=== PATIENT | female | born 1960 | race Caucasian/White ===

== ENCOUNTER 2021-08-28 11:07 | Inpatient (IN) ==
--- NOTE | 2021-08-28 11:55 | Emergency Department Note ---
Impression & Plan Acute exacerbation of chronic obstructive pulmonary disease, Hypoxia, Pneumonia ED Provider Note NAME: DAISY ABEL AGE: 61 SEX: F : 1960 ARRIVES VIA: Walk-In INFORMANT: Patient, ED PROVIDER(S): Pedro Luis Edmondson DO CHIEF COMPLAINT: SOB HPI: The patient is a 61-year-old female who presented to the emergency department for an evaluation shortness of breath. The patient had a vacation recently but she did not do any traveling. She states after that vacation she started noticing difficulty breathing and cough. Her symptoms have slowly been worsening especially over the last few days. She went to her family doctor jeremie lee to be seen and was sent to the emergency department immediately because her pulse ox was 82%. She arrived via private vehicle. She does not normally wear oxygen. She was placed on supplemental oxygen with significant improvement of her symptoms. She denies having any fever. She is had no hemoptysis but she does note a productive cough. She denies having any lower extremity swelling. She states the coughing does worsen when she lies down at night. She does not have a history of COPD diagnosed but she does use tobacco products. The patient did a home COVID test which was negative. ROS: See above HPI for pertinent positives & negatives. A total of 10 systems reviewed and were otherwise negative. PAST MEDICAL HISTORY: See Below PAST SURGICAL HISTORY: See Below FAMILY HISTORY: See Below SOCIAL HISTORY: See Below HOME MEDICATIONS: See Below ALLERGIES: See Below VITALS: See Below PHYSICAL EXAMINATION: GENERAL: Patient is awake alert in no acute distress patient is resting comfortably and showing no signs of anxiety EYES: The conjunctivae are clear. The pupils are round and reactive. EARS, NOSE, MOUTH AND THROAT: The nose is without any evidence of any deformity. Mucous membranes are moist. Tongue is midline. NECK: The neck is nontender and supple. RESPIRATORY: Diminished breath sounds are noted at the right base. There is scattered wheezes and rhonchi noted throughout especially upper lung cummings. There was mild conversational dyspnea. CARDIOVASCULAR: Regular rate and rhythm noted there no murmurs rubs or gallops normal S1 normal S2. GASTROINTESTINAL: The abdomen is soft. Abdomen is nontender MUSCULOSKELETAL/EXTREMITIES: There is no evidence of gross deformity full range of motion is noted in the hips and shoulders. SKIN: There is no obvious evidence of any rash. There are no petechiae, pallor or cyanosis noted. NEUROLOGIC: Patient is awake alert and oriented x3 MEDICAL DECISION MAKING: The patient is a 61-year-old female who presented to the emergency department for shortness of breath. The patient was found to have hypoxia when she follow- up with her family doctor today for these problems. The patient was sent to the emergency department for further evaluation. The patient was found to have abnormal lung sounds. Chest x-ray was felt to be consistent with an infiltrate however it was read as no definite infiltrate so CT of the chest was obtained due to the degree of hypoxia. The patient was treated with bronchodilator therapy. She was also treated with IV fluids and IV antibiotics. She was also given IV steroids. She was reevaluated multiple times. She still had significant oxygen requirement. For this reason I discussed her case with the on-call [facility]. They have agreed to evaluate the patient in the emergency department for further management and disposition. Triage Nursing notes reviewed. Prior medical records reviewed Vital Signs: reviewed and remarkable for elevated blood pressure and hypoxia. Differential diagnosis: Reactive airway disease, pneumonia, pneumothorax, COPD, CHF, infections, cardiac ischemia, pulmonary embolism, musculoskeletal, gastrointestinal, as well as other pathologies. ER treatment provided: See below Diagnostics interpreted by me: ECG: G was obtained in the emergency department. My interpretation is sinus rhythm at 82 bpm. There were no PVCs noted. Nonspecific lateral ST depressions and T wave abnormalities were noted. This was compared to a tracing from November 13, 1998. On the earlier tracing the patient does appear to have a shortened CT interval without delta wave that could be consistent with WPW. This does not appear to be present on today's tracing. Cardiac Monitoring: An order was placed for continuous cardiac monitoring. The monitor shows a rate of 91 bpm with sinus rhythm. Laboratory studies: As stated above and show below. Imaging studies: See below Consultation(s): I discussed this case with Cecelia Das who is on-call for the [facility]. Past Med/Surg History Medical History Depression GERD (gastroesophageal reflux disease) Hypertension Seasonal allergies Tobacco use WPW (Nfwqw-Uwbkgypzf-Efjsi syndrome) Surgical History H/O: hysterectomy History of hip replacement History of shoulder surgery Family History Father Diabetes Mother Diabetes Social History Smoking Status: Current every day smoker Do You Dip or Chew Tobacco: No; Hx Alcohol Use: Yes Alcohol type: beer Alcohol Intake Frequency: 2-3 x/Week Hx Substance Use: No Preferred Language: Guamanian Shearer Helper Required: No Beliefs That Will Affect Care: None Current Living Situation: Family Feels Safe at Home: Yes Safety Concerns: Feels Safe At This Time Allergies Allergies Allergy/AdvReac Type Severity Reaction Status Date / Time bee venom protein (honey bee) Allergy Severe Anaphylaxis Unverified 08/28/21 14:30 Home Meds Home Medications Medication Instructions Recorded Confirmed Bifidobacterium infantis 4 mg 4 mg PO QAM 08/28/21 08/28/21 capsule (Align) azelastine 205.5 mcg (0.15 %) 1 spray INTRANASAL BID 08/28/21 08/28/21 nasal spray citalopram 20 mg tablet 20 mg PO 08/28/21 08/28/21 epinephrine 0.3 mg/0.3 mL 0.3 mg IM UD PRN 08/28/21 08/28/21 injection, auto-injector famotidine 20 mg tablet (Pepcid AC) 20 mg PO 08/28/21 08/28/21 fexofenadine 180 mg tablet 180 mg PO [facility] 08/28/21 08/28/21 fluticasone propionate 50 1 spray INTRANASAL BID 08/28/21 08/28/21 mcg/actuation nasal spray,suspension ibuprofen 200 mg tablet 200 mg PO Q6H PRN 08/28/21 08/28/21 lisinopril 10 mg tablet 10 mg PO HS 08/28/21 08/28/21 meloxicam 15 mg tablet 15 mg PO DAILY 08/28/21 08/28/21 omeprazole 20 mg capsule,delayed 20 mg PO [facility] 08/28/21 08/28/21 release Results & Data (ED) Vital Signs Vital Signs - 24 hr 08/28/21 11:11 Temperature 36.3 C L Temperature Source Temporal Artery Scan Pulse Rate 85 Respiratory Rate 18 Respiratory Depth Normal Blood Pressure 157/78 H Blood Pressure Mean 104 Pulse Oximetry 89 L Oxygen Delivery Method Room Air Sepsis Recent Fever Within 48 Hours No Sepsis New/Unexplained Change in Mental Status No Sepsis Action Taken by Nursing No Action Required Home Medications Current Medication List: was personally reviewed by me Laboratory Data Attestation: I reviewed the patient's lab results. Result diagrams: 08/28/21 11:36 08/28/21 12:19 Lab Results 08/28/21 08/28/21 08/28/21 Range/Units 11:36 11:36 11:36 WBC 7.24 (4.8-10.8) K/uL RBC 4.78 (4.2-5.4) M/uL Hgb 14.8 (12.0-16.0) g/dL Hct 43.9 (37-47) % MCV 91.8 (80-100) fL MCH 31.0 (25-34) pg MCHC 33.7 (32-36) g/dL RDW Std Deviation 48.4 H (36.4-46.3) fL RDW Coeff of Elmo 14.3 (11.5-14.5) % Plt Count 200 (130-400) K/uL MPV 10.3 (7.4-10.4) fL Immature Gran % (Auto) 0.1 % Neut % (Auto) 74.7 % Lymph % (Auto) 15.7 % Mclennan % (Auto) 9.0 % Eos % (Auto) 0.4 % Baso % (Auto) 0.1 % Neut # (Auto) 5.40 (1.4-6.5) K/uL Lymph # (Auto) 1.14 L (1.2-3.4) K/uL Mclennan # (Auto) 0.65 H (0.11-0.59) K/uL Eos # (Auto) 0.03 (0-0.5) K/uL Baso # (Auto) 0.01 (0-0.2) K/uL Immature Gran # (Auto) 0.01 (0.00-0.02) K/uL PT 10.9 (9.0-12.0) Seconds INR 1.0 (0.9-1.1) APTT 33.9 H (21.0-31.0) Seconds PTT Ratio 1.2 Sodium (136-145) mmol/L Potassium (3.5-5.1) mmol/L Chloride (98-107) mmol/L Carbon Dioxide (21-32) mmol/L Anion Gap (3-11) BUN (6-23) mg/dl Creatinine (0.6-1.2) mg/dl Est Cr Clr Drug Dosing Est GFR ( Amer) ml/min Est GFR (Non-Af Amer) ml/min BUN/Creatinine Ratio (10-20) Glucose (70-99(Fasting)) mg/dl Calcium (8.5-10.1) mg/dl Magnesium (1.7-2.4) mg/dl Total Bilirubin (0.2-1.0) mg/dl AST (13-39) U/L ALT (7-52) U/L Alkaline Phosphatase (34-104) U/L Total Protein (6.0-8.3) gm/dl Albumin (3.4-5.0) gm/dl Globulin (2.5-4.0) gm/dl Albumin/Globulin Ratio (0.9-2) Procalcitonin (0-0.5) ng/ml Influ A Molecular Assay (Negative) Influ B Molecular Assay (Negative) SARS-CoV-2, RNA, NAAT NEGATIVE (NEGATIVE) 08/28/21 08/28/21 08/28/21 Range/Units 11:36 12:08 12:19 WBC (4.8-10.8) K/uL RBC (4.2-5.4) M/uL Hgb (12.0-16.0) g/dL Hct (37-47) % MCV (80-100) fL MCH (25-34) pg MCHC (32-36) g/dL RDW Std Deviation (36.4-46.3) fL RDW Coeff of Elmo (11.5-14.5) % Plt Count (130-400) K/uL MPV (7.4-10.4) fL Immature Gran % (Auto) % Neut % (Auto) % Lymph % (Auto) % Mclennan % (Auto) % Eos % (Auto) % Baso % (Auto) % Neut # (Auto) (1.4-6.5) K/uL Lymph # (Auto) (1.2-3.4) K/uL Mclennan # (Auto) (0.11-0.59) K/uL Eos # (Auto) (0-0.5) K/uL Baso # (Auto) (0-0.2) K/uL Immature Gran # (Auto) (0.00-0.02) K/uL PT (9.0-12.0) Seconds INR (0.9-1.1) APTT (21.0-31.0) Seconds PTT Ratio Sodium 137 (136-145) mmol/L Potassium 4.0 (3.5-5.1) mmol/L Chloride 101 (98-107) mmol/L Carbon Dioxide 27 (21-32) mmol/L Anion Gap 9 (3-11) BUN 8 (6-23) mg/dl Creatinine 0.57 L (0.6-1.2) mg/dl Est Cr Clr Drug Dosing Not Reportable Est GFR ( Amer) 115.2 ml/min Est GFR (Non-Af Amer) 99.4 ml/min BUN/Creatinine Ratio 14.0 (10-20) Glucose 99 (70-99(Fasting)) mg/dl Calcium 9.3 (8.5-10.1) mg/dl Magnesium 2.0 (1.7-2.4) mg/dl Total Bilirubin 0.5 (0.2-1.0) mg/dl AST 28 (13-39) U/L ALT 24 (7-52) U/L Alkaline Phosphatase 99 (34-104) U/L Total Protein 7.9 (6.0-8.3) gm/dl Albumin 4.5 (3.4-5.0) gm/dl Globulin 3.4 (2.5-4.0) gm/dl Albumin/Globulin Ratio 1.3 (0.9-2) Procalcitonin < 0.05 (0-0.5) ng/ml Influ A Molecular Assay Negative (Negative) Influ B Molecular Assay Negative (Negative) SARS-CoV-2, RNA, NAAT (NEGATIVE) Administered Medications Azithromycin 500 mg/ Dextrose 255 mls @ 125 mls/hr IV DAILY MEMO Stop: 09/04/21 15:14 Last Infusion: 08/28/21 18:05 Dose: 0 mls/hr Documented by: [id number] Admin: 08/28/21 15:28 Dose: 125 mls/hr Documented by: [id number] Discontinued Medications Albuterol (Albut/Ipratrop 3mg/0.5mg Neb 3 Ml Vial) 3 ml NEB NOW STA; Protocol Stop: 08/28/21 11:59 Last Admin: 08/28/21 12:13 Dose: 3 ml Documented by: [id number] Ceftriaxone Sodium (Rocephin) 2,000 mg in 70 mls @ 140 mls/hr IV NOW STA Stop: 08/28/21 12:27 Last Infusion: 08/28/21 17:06 Dose: 0 mls/hr Documented by: [id number] Admin: 08/28/21 12:11 Dose: 140 mls/hr Documented by: [id number] Ioversol (Optiray 320 125ml) 121 ml IV ONCE ONE Stop: 08/28/21 13:43 Last Admin: 08/28/21 13:43 Dose: 121 ml Documented by: [id number] Methylprednisolone (Methylprednisolone 125 Mg/2 Ml Vial) 125 mg IV NOW STA Stop: 08/28/21 11:59 Last Admin: 08/28/21 12:13 Dose: 125 mg Documented by: [id number] Imaging Data Radiologist's Impression: Chest X-Ray 08/28/21 11:14 XR chest 1V portable CLINICAL HISTORY: SOB. COMPARISON STUDY: No previous studies for comparison. TECHNIQUE: 1 view of the chest FINDINGS: Single frontal view of the chest demonstrates the cardiomediastinal silhouette to be within normal limits. There is a decreased inspiratory effort with el evation of the hemidiaphragms and crowding of the bronchovascular markings at the lung bases and centrally. The lungs are clear of alveolar opacities. There is no evidence for pleural effusion. There is no evidence for vascular congestion. There is no acute osseous pathology. IMPRESSION: 1. There is a decreased inspiratory effort with otherwise no acute chest disease. ACT 112: Negative or not required by law. Electronically signed by: Vincent Forrest M.D. 08/28/2021 12:23 PM Chest CTA 08/28/21 13:10 CT ANGIOGRAM OF THE CHEST CLINICAL HISTORY: Dyspnea COMPARISON STUDY: Chest x-ray dated 08/28/2021. TECHNIQUE: Following the IV administration of 121 cc of Optiray 320, CT angiogram of the chest was performed from the upper abdomen to the thoracic inlet utilizing the pulmonary embolus protocol. Images are reviewed in the axial, sagittal, and coronal planes. 3-D MIPS images are created and assessed. IV contrast was administered without complication. A dose lowering technique was utilized adhering to the principles of ALARA. Examination is compromised by motion artifact. CT DOSE: 543.71 mGy.cm FINDINGS: Thyroid: Imaged portions of the thyroid gland are normal in size and attenuation. Thoracic aorta: There is atherosclerotic calcification of the thoracic aorta, which is normal in caliber and demonstrates standard 3-vessel arch anatomy. No dissection is seen. Pulmonary vasculature: The pulmonary trunk is normal in caliber. There are no filling defects identified in main, lobar, or segmental pulmonary branches to suggest pulmonary embolus. Heart: The heart is normal in size and without pericardial effusion. There are coronary artery calcifications. Lungs and pleural spaces: Evaluation of the lung parenchyma is significantly degraded by motion artifact. There is patchy groundglass consolidation seen throughout both lungs, most confluent throughout the right lower lobe. No pleural effusion is identified. Scarring/atelectasis is noted in the right lung base. The trachea and central airways are clear. There is diffuse peribronchial thickening. Mediastinum: There is no mediastinal lymphadenopathy. Yamileth: Mildly enlarged hilar lymph nodes measure up to 14 mm in short axis. Axillae: There is no axillary lymphadenopathy. Upper abdomen: There is a 2.1 cm right adrenal adenoma. Partially visualized upper abdominal viscera is otherwise within normal limits. Skeletal structures: The skeletal structures are osteopenic. Mild degenerative change is seen throughout the thoracic spine. No lytic or blastic bony lesions are seen. IMPRESSION: 1. There is no evidence of pulmonary embolus in the main, lobar, or segmental pulmonary arteries. 2. Multifocal groundglass consolidation is seen throughout both lungs, most confluent at the right lung base. This is typical for an infectious/inflammatory pneumonitis and radiographic follow-up to resolution is recommended. 3. Mildly enlarged hilar lymph nodes are likely reactive. 4. Advanced coronary artery calcification. 5. Additional findings as above. ACT 112: Negative or not required by law. Electronically signed by: Cristhian Chavez M.D. 08/28/2021 1:58 PM Discharge Plan Visit Data Chief Complaint: Cough Stated Complaint: OXYGEN LEVEL 82, COUGHING, WEAKNESS ED Provider: Pedro Luis Edmondson Discharge Problem: Acute exacerbation of chronic obstructive pulmonary disease, Hypoxia, Pneumonia Patient Disposition: Admitted As Inpatient Discharge Instructions Interventions: ED Discharge Assessment Last Done: 08/28/21 15:55 Discharge Problem: Pneumonia Qualifiers: Pneumonia type: due to unspecified organism Laterality: bilateral Lung location: lower lobe of lung Qualified Code(s): J18.9 - Pneumonia, unspecified organism
[2021-08-28] MEDS ORDERED: ALBUT/IPRATROP 3MG/0.5MG NEB 3 ML VIAL NEB STA (11:58)
[2021-08-28] MEDS ORDERED: cefTRIAXone SODIUM 2,000 MG/70 ML BAG IV STA (11:58)
[2021-08-28] MEDS ORDERED: methylPREDNISolone 125 MG/2 ML VIAL IV STA (11:58)
[2021-08-28 12:06] LABS: Basophils # (auto) 0.01 K/uL (0-0.2); Basophils % (auto) 0.1 %; Eosinophils # (auto) 0.03 K/uL (0-0.5); Eosinophils % (auto) 0.4 %; Hematocrit (blood only) 43.9 % (37-47); Hemoglobin 14.8 g/dL (12.0-16.0); Immature Granulocytes # (auto) 0.01 K/uL (0.00-0.02); Immature Granulocytes % (auto) 0.1 %; Lymphocytes # (auto) 1.14 K/uL (1.2-3.4); Lymphocytes % (auto) 15.7 %; Mean Corpuscular Hgb Conc 33.7 g/dL (32-36); Mean Corpuscular Volume 91.8 fL (80-100); Mean Platelet Volume 10.3 fL (7.4-10.4); Monocytes # (auto) 0.65 K/uL (0.11-0.59); Neutrophils % (auto) 74.7 %; Platelet Count 200 K/uL (130-400); RDW Coefficient of Variation 14.3 % (11.5-14.5); RDW Standard Deviation 48.4 fL (36.4-46.3); Red Blood Count 4.78 M/uL (4.2-5.4); White Blood Count 7.24 K/uL (4.8-10.8)
[2021-08-28 12:22] LABS: Partial Thromboplastin Ratio 1.2; Partial Thromboplastin Time 33.9 Seconds (21.0-31.0); Prothrombin Time 10.9 Seconds (9.0-12.0)
--- NOTE | 2021-08-28 12:24 | XRay Report ---
XR chest 1V portable CLINICAL HISTORY: SOB. COMPARISON STUDY: No previous studies for comparison. TECHNIQUE: 1 view of the chest FINDINGS: Single frontal view of the chest demonstrates the cardiomediastinal silhouette to be within normal li mits. There is a decreased inspiratory effort with elevation of the hemidiaphragms and crowding of th e bronchovascular markings at the lung bases and centrally. The lungs are clear of alveolar opacities . There is no evidence for pleural effusion. There is no evidence for vascular congestion. There is n o acute osseous pathology. IMPRESSION: 1. There is a decreased inspiratory effort with otherwise no acute chest disease. ACT 112: Negative or not required by law. Electronically signed by: Vincent Forrest M.D. 08/28/2021 12:23 PM
[2021-08-28 13:14] LABS: Alanine Aminotransferase 24 U/L (7-52); Albumin Globulin Ratio 1.3 (0.9-2); Albumin Level 4.5 gm/dl (3.4-5.0); Alkaline Phosphatase 99 U/L (34-104); Anion Gap 9 (3-11); Aspartate Aminotransferase 28 U/L (13-39); Bilirubin,Total 0.5 mg/dl (0.2-1.0); Blood Urea Nitrogen 8 mg/dl (6-23); Calcium 9.3 mg/dl (8.5-10.1); Carbon Dioxide 27 mmol/L (21-32); Chloride 101 mmol/L (98-107); Est GFR (African American) 115.2 ml/min; Est GFR (Non-African American) 99.4 ml/min; Globulin 3.4 gm/dl (2.5-4.0); Glucose 99 mg/dl (70-99(Fasting)); Sodium 137 mmol/L (136-145); Total Protein 7.9 gm/dl (6.0-8.3)
[2021-08-28 13:36] LABS: Influenza A virus by PCR Negative (Negative); Influenza B virus by PCR Negative (Negative)
[2021-08-28] MEDS ORDERED: OPTIRAY 320 125ml IV ONE (13:42)
--- NOTE | 2021-08-28 13:59 | CT Scan Report ---
CT ANGIOGRAM OF THE CHEST CLINICAL HISTORY: Dyspnea COMPARISON STUDY: Chest x-ray dated 08/28/2021. TECHNIQUE: Following the IV administration of 121 cc of Optiray 320, CT angiogram of the chest was pe rformed from the upper abdomen to the thoracic inlet utilizing the pulmonary embolus protocol. Images are reviewed in the axial, sagittal, and coronal planes. 3-D MIPS images are created and assessed. I V contrast was administered without complication. A dose lowering technique was utilized adhering to the principles of ALARA. Examination is compromised by motion artifact. CT DOSE: 543.71 mGy.cm FINDINGS: Thyroid: Imaged portions of the thyroid gland are normal in size and attenuation. Thoracic aorta: There is atherosclerotic calcification of the thoracic aorta, which is normal in cassandra deric and demonstrates standard 3-vessel arch anatomy. No dissection is seen. Pulmonary vasculature: The pulmonary trunk is normal in caliber. There are no filling defects identif ied in main, lobar, or segmental pulmonary branches to suggest pulmonary embolus. Heart: The heart is normal in size and without pericardial effusion. There are coronary artery calcif ications. Lungs and pleural spaces: Evaluation of the lung parenchyma is significantly degraded by motion artif act. There is patchy groundglass consolidation seen throughout both lungs, most confluent throughout the right lower lobe. No pleural effusion is identified. Scarring/atelectasis is noted in the right l abida base. The trachea and central airways are clear. There is diffuse peribronchial thickening. Mediastinum: There is no mediastinal lymphadenopathy. Yamileth: Mildly enlarged hilar lymph nodes measure up to 14 mm in short axis. Axillae: There is no axillary lymphadenopathy. Upper abdomen: There is a 2.1 cm right adrenal adenoma. Partially visualized upper abdominal viscera is otherwise within normal limits. Skeletal structures: The skeletal structures are osteopenic. Mild degenerative change is seen through out the thoracic spine. No lytic or blastic bony lesions are seen. IMPRESSION: 1. There is no evidence of pulmonary embolus in the main, lobar, or segmental pulmonary arteries. 2. Multifocal groundglass consolidation is seen throughout both lungs, most confluent at the right kael ng base. This is typical for an infectious/inflammatory pneumonitis and radiographic follow-up to res olution is recommended. 3. Mildly enlarged hilar lymph nodes are likely reactive. 4. Advanced coronary artery calcification. 5. Additional findings as above. ACT 112: Negative or not required by law. Electronically signed by: Cristhian Chavez M.D. 08/28/2021 1:58 PM
[2021-08-28] MEDS: AZITHROMYCIN 500 MG in DEXTROSE 5% 250 ML IV SCH (15:28)
[2021-08-28] MEDS ORDERED: cefTRIAXone SODIUM 1,000 MG in DEXTROSE 5% 50 ML IV SCH (16:47)
--- NOTE | 2021-08-28 16:48 | History & Physical Report ---
Date of Service August 28, 2021 Assessment & Plan (1) Acute respiratory failure with hypoxia: (2) Pneumonia: Plan: Admit to [facility] Patient presenting by referral of PCPs office for evaluation of cough, shortness of breath, hypoxia Patient developed upper respiratory-like symptoms about 4 days ago. At PCPs office, she was hypoxic on room air at 82%. In the ED, CTA chest negative for pulmonary embolism however shows Multifocal groundglass consolidation is seen throughout both lungs, most confluent at the right lung base. This is typical for an infectious/inflammatory pneumonitis. S/p IV ceftriaxone in the ED, continue with and add IV azithromycin Patient does not appear septic History of tobacco abuse, suspect underlying COPD. No wheezing noted on exam, will hold on further steroids at this time Pulmonary toilet with nebs, flutter valve, incentive spirometer Sputum culture (3) Hypertension: Plan: BP controlled, continue lisinopril (4) Tobacco use: Plan: Patient counseled regarding tobacco cessation Nicotine patch offered, patient declined (5) DVT prophylaxis: Plan: SQ Lovenox Admission and Anticipated Discharge Date Admission Date: August 28, 2021 History of Present Illness Chief Complaint: Cough, shortness of breath Primary Care Provider: Viv Birmingham PA-C 61-year-old female with PMH Nrdbc-Offypeujt-Yzmou syndrome, HTN, depression, tobacco abuse, seasonal allergies, and other problems listed below who presents the ED for evaluation of cough and shortness of breath. 4 days ago, patient reports she developed cold-like symptoms and body aches. Cough has progressively worsened and patient reports shortness of breath with minimal exertion. Cough has been nonproductive. Patient reports he feels as though she is running a fever however did not check her temperature. Patient denies chest pain. No lightheadedness, dizziness, diaphoresis, syncopal events. Denies abdominal pain, nausea, vomiting, diarrhea. No urinary symptoms. Patient was seen at her PCPs office and was found to be hypoxic at 82%. She was then referred to the ED for further evaluation. In the ED, patient was requiring 4 L of oxygen via nasal cannula. CTA chest negative for pulmonary embolism however shows Multifocal groundglass consolidation is seen throughout both lungs, most confluent at the right lung base. This is typical for an infectious/inflammatory pneumonitis. Patient was given nebulizer treatment, IV ceftriaxone, IV Solu- Medrol 125 mg. Allergies Allergy/AdvReac Type Severity Reaction Status Date / Time bee venom protein (honey bee) Allergy Severe Anaphylaxis Unverified 08/28/21 14:30 Home Medications Medication Instructions Recorded Confirmed Type Bifidobacterium infantis 4 mg 4 mg PO QAM 08/28/21 08/28/21 History capsule (Align) azelastine 205.5 mcg (0.15 %) 1 spray INTRANASAL BID 08/28/21 08/28/21 History nasal spray citalopram 20 mg tablet 20 mg PO HS 08/28/21 08/28/21 History epinephrine 0.3 mg/0.3 mL 0.3 mg IM UD PRN 08/28/21 08/28/21 History injection, auto-injector famotidine 20 mg tablet (Pepcid AC) 20 mg PO HS 08/28/21 08/28/21 History fexofenadine 180 mg tablet 180 mg PO QAM 08/28/21 08/28/21 History fluticasone propionate 50 1 spray INTRANASAL BID 08/28/21 08/28/21 History mcg/actuation nasal spray,suspension ibuprofen 200 mg tablet 200 mg PO Q6H PRN 08/28/21 08/28/21 History lisinopril 10 mg tablet 10 mg PO HS 08/28/21 08/28/21 History meloxicam 15 mg tablet 15 mg PO DAILY 08/28/21 08/28/21 History omeprazole 20 mg capsule,delayed 20 mg PO QAM 08/28/21 08/28/21 History release Past Med/Surg History Medical History Depression GERD (gastroesophageal reflux disease) Hypertension Seasonal allergies Tobacco use WPW (Fjlor-Edhpthsst-Uknll syndrome) Surgical History H/O: hysterectomy History of hip replacement History of shoulder surgery Family History Father Diabetes Mother Diabetes Social History Smoking Status: Current every day smoker Hx Alcohol Use: Yes Alcohol type: beer Alcohol Intake Frequency: 2-3 x/Week Feels Safe at Home: Yes Review of Systems Review of Systems: ROS per HPI, all other systems reviewed and negative Physical Exam Constitutional: WD/WN, vitals as above Eyes: PERRL, conjunctivae normal, anicteric sclerae ENMT: external ear and nose normal, oropharynx normal Respiratory: normal respiratory effort; no respiratory distress Auscultation: + diminished lung sounds; no wheezes Cardiovascular: Rate/Rhythm: regular rate and regular rhythm Vessels: normal peripheral pulses Extremities: no edema Gastrointestinal (Abdomen): normal bowel sounds, soft, nontender, no hepatosplenomegaly Musculoskeletal: no cyanosis or clubbing, extremities motor strength 5/5 Skin: no rashes, warm and dry Neurologic: PERRL, EOMI, accommodation nl, no face palsy, no dysarthria Psychiatric: A+Ox3, euthymic affect Results & Data Results & Data ([facility]) Vital Signs (Past 12 Hours) Vital Signs Temp Pulse Resp BP Pulse Ox 08/28/21 11:11 36.3 C L 85 18 157/78 H 89 L Laboratory Results Short CBC 08/28/21 Range/Units 11:36 WBC 7.24 (4.8-10.8) K/uL Hgb 14.8 (12.0-16.0) g/dL Hct 43.9 (37-47) % Plt Count 200 (130-400) K/uL BMP 08/28/21 12:19 Sodium 137 Potassium 4.0 Chloride 101 Carbon Dioxide 27 BUN 8 Creatinine 0.57 L Glucose 99 Calcium 9.3 Liver Function 08/28/21 Range/Units 12:19 Total Bilirubin 0.5 (0.2-1.0) mg/dl AST 28 (13-39) U/L ALT 24 (7-52) U/L Alkaline Phosphatase 99 (34-104) U/L Albumin 4.5 (3.4-5.0) gm/dl Diagnostic Findings Chest X-Ray 08/28/21 11:14 XR chest 1V portable CLINICAL HISTORY: SOB. COMPARISON STUDY: No previous studies for comparison. TECHNIQUE: 1 view of the chest FINDINGS: Single frontal view of the chest demonstrates the cardiomediastinal silhouette to be within normal limits. There is a decreased inspiratory effort with elevation of the hemidiaphragms and crowding of the bronchovascular markings at the lung bases and centrally. The lungs are clear of alveolar opacities. There is no evidence for pleural effusion. There is no evidence for vascular congestion. There is no acute osseous pathology. IMPRESSION: 1. There is a decreased inspiratory effort with otherwise no acute chest disease. ACT 112: Negative or not required by law. Electronically signed by: Vincent Forrest M.D. 08/28/2021 12:23 PM Chest CTA 08/28/21 13:10 CT ANGIOGRAM OF THE CHEST CLINICAL HISTORY: Dyspnea COMPARISON STUDY: Chest x-ray dated 08/28/2021. TECHNIQUE: Following the IV administration of 121 cc of Optiray 320, CT angiogram of the chest was performed from the upper abdomen to the thoracic inlet utilizing the pulmonary embolus protocol. Images are reviewed in the axial, sagittal, and coronal planes. 3-D MIPS images are created and assessed. IV contrast was administered without complication. A dose lowering technique was utilized adhering to the principles of ALARA. Examination is compromised by motion artifact. CT DOSE: 543.71 mGy.cm FINDINGS: Thyroid: Imaged portions of the thyroid gland are normal in size and attenuation. Thoracic aorta: There is atherosclerotic calcification of the thoracic aorta, which is normal in caliber and demonstrates standard 3-vessel arch anatomy. No dissection is seen. Pulmonary vasculature: The pulmonary trunk is normal in caliber. There are no filling defects identified in main, lobar, or segmental pulmonary branches to suggest pulmonary embolus. Heart: The heart is normal in size and without pericardial effusion. There are coronary artery calcifications. Lungs and pleural spaces: Evaluation of the lung parenchyma is significantly d egraded by motion artifact. There is patchy groundglass consolidation seen throughout both lungs, most confluent throughout the right lower lobe. No pleural effusion is identified. Scarring/atelectasis is noted in the right lung base. The trachea and central airways are clear. There is diffuse peribronchial thickening. Mediastinum: There is no mediastinal lymphadenopathy. Yamileth: Mildly enlarged hilar lymph nodes measure up to 14 mm in short axis. Axillae: There is no axillary lymphadenopathy. Upper abdomen: There is a 2.1 cm right adrenal adenoma. Partially visualized upper abdominal viscera is otherwise within normal limits. Skeletal structures: The skeletal structures are osteopenic. Mild degenerative change is seen throughout the thoracic spine. No lytic or blastic bony lesions are seen. IMPRESSION: 1. There is no evidence of pulmonary embolus in the main, lobar, or segmental pulmonary arteries. 2. Multifocal groundglass consolidation is seen throughout both lungs, most confluent at the right lung base. This is typical for an infectious/inflammatory pneumonitis and radiographic follow-up to resolution is recommended. 3. Mildly enlarged hilar lymph nodes are likely reactive. 4. Advanced coronary artery calcification. 5. Additional findings as above. ACT 112: Negative or not required by law. Electronically signed by: Cristhian Chavez M.D. 08/28/2021 1:58 PM Code Status & VTE Plan VTE Prophylaxis Plan VTE Prophylaxis will be ordered: Yes Supervising Physician Co-Signing Physician Notes Patient was seen and examined with Cecelia KENNEDY, case discussed and agree with the documentation above. Chart reviewed. In summary, this is a 61 year old female who presented to the ED with cough and shortness of breath along with cold symptoms and bodyache for past 4 days, seen by PCP today and was noted to be hypoxic to 82% and sent to ED. In ED, she was hypoxic and required 4 L of NC and was maintaining saturation at 90%. Afebrile. AAO. Chest fairly clear, heart sounds normal, abdomen benign. Labs with no leucocytosis but CT chest with RLL PNA but no PE. Admit for acute hypoxic respiratory failure due to CAP. Flu/COVID negative. Procal negative. Does not meet sepsis criteria. Continue rocephin/zithromax, flutter valve/IS, mucinex. Follow sputum clx. Wean down oxygen as tolerated. Will need 2 step oxygen eval prior to discharge. Rest as per note above. (1) Pneumonia Laterality: bilateral Lung location: lower lobe of lung Pneumonia type: due to unspecified organism Qualified Code(s): J18.9 - Pneumonia, unspecified organism
[2021-08-28] MEDS ORDERED: Nursing to Pharmacy Communication SCH (17:15)
[2021-08-28] MEDS: ALBUT/IPRATROP 3MG/0.5MG NEB 3 ML VIAL NEB PRN (19:44)
[2021-08-28] MEDS: FAMOTIDINE 20 MG TAB PO SCH (21:01)
[2021-08-28] MEDS: CITALOPRAM 20 MG TAB PO SCH (21:02)
[2021-08-28] MEDS: lisinopril 10 MG TAB PO SCH (21:02)
[2021-08-28] MEDS: ENOXAPARIN INJ 40 MG/0.4 ML SYR SQ SCH (21:02)
[2021-08-29 07:28] LABS: Hematocrit (blood only) 43.2 % (37-47); Hemoglobin 14.5 g/dL (12.0-16.0); Mean Corpuscular Hemoglobin 30.8 pg (25-34); Mean Corpuscular Hgb Conc 33.6 g/dL (32-36); Mean Corpuscular Volume 91.7 fL (80-100); Mean Platelet Volume 10.3 fL (7.4-10.4); Platelet Count 192 K/uL (130-400); RDW Coefficient of Variation 13.9 % (11.5-14.5); RDW Standard Deviation 47.2 fL (36.4-46.3); Red Blood Count 4.71 M/uL (4.2-5.4)
[2021-08-29] MEDS: ALBUT/IPRATROP 3MG/0.5MG NEB 3 ML VIAL NEB PRN ×3 (07:28→21:53)
[2021-08-29 08:13] LABS: Calcium 9.1 mg/dl (8.5-10.1); Creatinine Clr Calc Pharmacy 124.9 ml/min; Est GFR (African American) 114.5 ml/min; Est GFR (Non-African American) 98.8 ml/min; Potassium 3.7 mmol/L (3.5-5.1)
[2021-08-29] MEDS: PANTOprazole 40 MG TAB PO SCH (08:15)
[2021-08-29] MEDS: FEXOFENADINE HCL 180 MG TAB PO SCH (08:15)
[2021-08-29] MEDS: AZITHROMYCIN 500 MG in DEXTROSE 5% 250 ML IV SCH (09:20)
--- NOTE | 2021-08-29 11:41 | Hospitalist Progress Note ---
Date of Service August 29, 2021 Assessment & Plan (1) Acute respiratory failure with hypoxia: (2) Pneumonia: Plan: cont IV abx, duonebs as needed and flutter valve. Cultures pending. Improved, cont to wean oxygen as tolerated. (3) Hypertension: Plan: chronic HTN, BP controlled, continue lisinopril (4) Tobacco use: Plan: Patient counseled regarding tobacco cessation Nicotine patch offered, patient declined Reportedly had pneumovax in the past. (5) DVT prophylaxis: Plan: SQ Lovenox Full dispo-to home when hypoxia resolves. Trinidad Red DO [facility] Hospitalist Admission and Anticipated Discharge Date Admission Date: August 28, 2021 Subjective 61-year-old female presented with shortness of breath and cough. When she arrived in the emergency department her oxygen saturation was 82% and she does not normally wear oxygen. She is a smoker without a history of COPD. She was treated with IV steroids IV fluids and IV antibiotics and given bronchodilator therapy. A CT chest revealed evidence of pneumonia and she was admitted to the hospitalist service. She is doing well and her SOB is improved She denies fevers or chills Tolerating PO is at bedside Review of Systems Review of Systems: All systems were reviewed and negative except as indicated above. Physical Exam Physical Exam: CONSTITUTIONAL: WNWD, vitals as above, generally well- appearing, NAD EYES: normal conjunctivae, no scleral icterus, ENT: external ear and nose normal, NECK: trachea midline, RESPIRATORY: coarse rhonchi in right base, no rales or wheezes, normal respiratory effort CARDIOVASCULAR: regular rate and rhythm, S1 and 2 heard without murmurs, gallops or rubs, no JVD, no peripheral edema, no carotid bruits CHEST: inspection of chest was normal (+pacemaker, +port) GASTROINTESTINAL: normal bowel sounds, soft, nontender, ND, no guarding MUSCULOSKELETAL: strength 5/5 throughout, head is normocephalic and atraumatic, neck supple, normal palpation of chest wall without tenderness SKIN: warm and dry, NEUROLOGIC: CN 2-12 grossly intact, no sensory deficit, normal cognition, normal speech, no tremor PSYCHIATRIC: alert cooperative and oriented to person, place and time. Results & Data Results & Data ([facility]) Vital Signs (Past 12 Hours) Vital Signs Temp Pulse Resp BP Pulse Ox 08/29/21 11:21 76 90 08/29/21 07:32 37 C 69 20 147/85 H 93 08/29/21 07:28 20 89 L Laboratory Results Short CBC 08/28/21 08/29/21 Range/Units 11:36 06:35 WBC 7.24 8.20 (4.8-10.8) K/uL Hgb 14.8 14.5 (12.0-16.0) g/dL Hct 43.9 43.2 (37-47) % Plt Count 200 192 (130-400) K/uL BMP 08/28/21 08/29/21 12:19 06:35 Sodium 137 139 Potassium 4.0 3.7 Chloride 101 102 Carbon Dioxide 27 30 BUN 8 11 Creatinine 0.57 L 0.58 L Glucose 99 106 H Calcium 9.3 9.1 Liver Function 08/28/21 Range/Units 12:19 Total Bilirubin 0.5 (0.2-1.0) mg/dl AST 28 (13-39) U/L ALT 24 (7-52) U/L Alkaline Phosphatase 99 (34-104) U/L Albumin 4.5 (3.4-5.0) gm/dl Medications Administered Current Inpatient Medications Acetaminophen (Acetaminophen 325 Mg Tab) 650 mg PO Q4H PRN PRN Reason: pain/fever Stop: 09/27/21 16:46 Albuterol (Albut/Ipratrop 3mg/0.5mg Neb 3 Ml Vial) 3 ml NEB Q4R PRN; Protocol PRN Reason: shortness of breath Stop: 09/27/21 16:46 Last Admin: 08/29/21 11:21 Dose: 3 ml Documented by: Citalopram Hydrobromide (Citalopram 20 Mg Tab) 20 mg PO HS [facility]O Stop: 09/27/21 20:59 Last Admin: 08/28/21 21:02 Dose: 20 mg Documented by: Enoxaparin Sodium (Enoxaparin Inj 40 Mg/0.4 Ml Syr) 40 mg SQ Q24H MEMO Stop: 09/27/21 17:59 Last Admin: 08/28/21 21:02 Dose: 40 mg Documented by: Famotidine (Famotidine 20 Mg Tab) 20 mg PO HS [facility]O Stop: 09/27/21 20:59 Last Admin: 08/28/21 21:01 Dose: 20 mg Documented by: Fexofenadine HCl (Fexofenadine Hcl 180 Mg Tab) 180 mg PO QAM [facility] Stop: 09/28/21 08:59 Last Admin: 08/29/21 08:15 Dose: 180 mg Documented by: Azithromycin 500 mg/ Dextrose 255 mls @ 125 mls/hr IV DAILY [facility]O Stop: 09/04/21 15:14 Last Admin: 08/29/21 09:20 Dose: 125 mls/hr Documented by: Ceftriaxone Sodium 2,000 mg/ (Dextrose) 70 mls @ 140 mls/hr IV Q24H [facility]O Stop: 09/05/21 11:59 Lisinopril (Lisinopril 10 Mg Tab) 10 mg PO HS [facility] Stop: 09/27/21 20:59 Last Admin: 08/28/21 21:02 Dose: 10 mg Documented by: Pantoprazole Sodium (Pantoprazole 40 Mg Tab) 40 mg PO QAM [facility] Stop: 09/28/21 08:59 Last Admin: 08/29/21 08:15 Dose: 40 mg Documented by: (1) Pneumonia Laterality: bilateral Lung location: lower lobe of lung Pneumonia type: due to unspecified organism Qualified Code(s): J18.9 - Pneumonia, unspecified organism
[2021-08-29] MEDS: cefTRIAXone SODIUM 2,000 MG in DEXTROSE 5% 50 ML IV SCH (12:45)
--- NOTE | 2021-08-29 17:53 | Electrocardiogram Report ---
Test Reason : Blood Pressure : / mmHG Vent. Rate : 082 BPM Atrial Rate : 082 BPM P-R Int : 136 ms QRS Dur : 066 ms QT Int : 372 ms P-R-T Axes : 091 076 032 degrees QTc Int : 434 ms Poor data quality, interpretation may be adversely affected Sinus rhythm with Premature atrial complexes Nonspecific ST and T wave abnormality Abnormal ECG When compared with ECG of 13-NOV-1998 16:21, Premature atrial complexes are now Present [id number] is no longer Present Confirmed by Alex Holland ([id number]) on 08/29/2021 5:52:53 PM Referred By: Confirmed By:Jovon Holland
[2021-08-29] MEDS: lisinopril 10 MG TAB PO SCH (19:21)
[2021-08-29] MEDS: ACETAMINOPHEN 325 MG TAB PO PRN (19:21)
[2021-08-29] MEDS: FAMOTIDINE 20 MG TAB PO SCH (19:21)
[2021-08-29] MEDS: CITALOPRAM 20 MG TAB PO SCH (19:21)
[2021-08-29] MEDS: ENOXAPARIN INJ 40 MG/0.4 ML SYR SQ SCH (19:22)
[2021-08-30] MEDS: ALBUT/IPRATROP 3MG/0.5MG NEB 3 ML VIAL NEB PRN ×3 (08:52→20:39)
[2021-08-30] MEDS: FEXOFENADINE HCL 180 MG TAB PO SCH (08:53)
[2021-08-30] MEDS: PANTOprazole 40 MG TAB PO SCH (08:53)
[2021-08-30] MEDS: AZITHROMYCIN 500 MG in DEXTROSE 5% 250 ML IV SCH (08:53)
[2021-08-30] MEDS ORDERED: SODIUM CHLOR 7% 4 ML NEB NEB PRN (12:23)
[2021-08-30] MEDS: ACETYLCYSTEINE 20% INHAL SOLN 4ML ***DISPENSED BY RESP. INH SCH ×2 (12:34→20:39)
[2021-08-30] MEDS: cefTRIAXone SODIUM 2,000 MG in DEXTROSE 5% 50 ML IV SCH (12:42)
[2021-08-30] MEDS: guaiFENesin 600 MG TABCR PO SCH ×2 (12:43→20:20)
--- NOTE | 2021-08-30 18:58 | Hospitalist Progress Note ---
Date of Service August 30, 2021 Assessment & Plan (1) Acute respiratory failure with hypoxia: (2) Pneumonia: (3) Hypertension: (4) Tobacco use: Plan: Acute respiratory failure with hypoxia- due to PNA- wean down oxygen as tolerated, improving CAP- 1st episode. states she had her pneumonia vaccination. - Continue empiric rocephin/zithro pending sputum clx results - Continue nebs, mucomyst, mucinex, nebs, flutter valve, IS CTA chest 08/28- 1. There is no evidence of pulmonary embolus in the main, lobar, or segmental pulmonary arteries. 2. Multifocal groundglass consolidation is seen throughout both lungs, most confluent at the right lung base. This is typical for an infectious/inflammatory pneumonitis and radiographic follow-up to resolution is recommended. 3. Mildly enlarged hilar lymph nodes are likely reactive. Tobacco abuse- recommended quitting. Declined nicoderm patch HTN- chronic, stable, continue lisinopril GERD- continue PPI, pepcid DVT prophylaxis- sc lovenox Dispo- Continue inpatient management. Discharge home when able to wean off oxygen, otherwise will need to arrange home oxygen Admission and Anticipated Discharge Date Admission Date: August 28, 2021 Subjective Feeling better from admission. She was able to expectorate some sputum for clx today. Feels lots of junk inside the chest that needs to come out. Still requiring oxygen. Denies any other issues. Physical Exam Physical Exam: General: Lying comfortably in bed, not in distress, on NC HEENT: EOMI, RONALD, MMM Chest: Coarse breath sound bilaterally CVS: Regular rate and rhythm, normal heart sounds, no murmur Abdomen: Soft, non tender, not distended, normal bowel sounds Neuro: Awake, alert, oriented, conversing well, non focal Extremities: No cyanosis, clubbing or edema Results & Data Results & Data ([facility]) Vital Signs (Past 12 Hours) Vital Signs Temp Pulse Resp BP Pulse Ox 08/30/21 16:16 36.8 C 73 18 133/77 93 08/30/21 12:34 20 94 08/30/21 08:22 92 08/30/21 07:29 36.7 C 78 18 129/80 Medications Administered Current Inpatient Medications Acetaminophen (Acetaminophen 325 Mg Tab) 650 mg PO Q4H PRN PRN Reason: pain/fever Stop: 09/27/21 16:46 Last Admin: 08/29/21 19:21 Dose: 650 mg Documented by: Acetylcysteine (Acetylcysteine 20% Inhal Soln 4ml Dispensed By Resp.) 5 ml INH BID MEMO Stop: 09/29/21 12:29 Last Admin: 08/30/21 12:34 Dose: 5 ml Documented by: Albuterol (Albut/Ipratrop 3mg/0.5mg Neb 3 Ml Vial) 3 ml NEB Q4R PRN; Protocol PRN Reason: shortness of breath Stop: 09/27/21 16:46 Last Admin: 08/30/21 12:20 Dose: 3 ml Documented by: Citalopram Hydrobromide (Citalopram 20 Mg Tab) 20 mg PO HS [facility]O Stop: 09/27/21 20:59 Last Admin: 08/29/21 19:21 Dose: 20 mg Documented by: Enoxaparin Sodium (Enoxaparin Inj 40 Mg/0.4 Ml Syr) 40 mg SQ Q24H [facility] Stop: 09/27/21 17:59 Last Admin: 08/29/21 19:22 Dose: 40 mg Documented by: Famotidine (Famotidine 20 Mg Tab) 20 mg PO HS [facility] Stop: 09/27/21 20:59 Last Admin: 08/29/21 19:21 Dose: 20 mg Documented by: Fexofenadine HCl (Fexofenadine Hcl 180 Mg Tab) 180 mg PO QAM [facility] Stop: 09/28/21 08:59 Last Admin: 08/30/21 08:53 Dose: 180 mg Documented by: Guaifenesin (Guaifenesin 600 Mg Tabcr) 1,200 mg PO Q12 [facility] Stop: 09/29/21 11:59 Last Admin: 08/30/21 12:43 Dose: 1,200 mg Documented by: Azithromycin 500 mg/ Dextrose 255 mls @ 125 mls/hr IV DAILY [facility] Stop: 09/04/21 15:14 Last Infusion: 08/30/21 12:25 Dose: Infused Documented by: Ceftriaxone Sodium 2,000 mg/ (Dextrose) 70 mls @ 140 mls/hr IV Q24H [facility] Stop: 09/05/21 11:59 Last Infusion: 08/30/21 13:21 Dose: Infused Documented by: Lisinopril (Lisinopril 10 Mg Tab) 10 mg PO HS [facility] Stop: 09/27/21 20:59 Last Admin: 08/29/21 19:21 Dose: 10 mg Documented by: Pantoprazole Sodium (Pantoprazole 40 Mg Tab) 40 mg PO QAM [facility] Stop: 09/28/21 08:59 Last Admin: 08/30/21 08:53 Dose: 40 mg Documented by: Sodium Chloride (Sodium Chlor 7% 4 Ml Neb) 4 ml NEB BIDR [facility]O Stop: 09/29/21 18:59 Sodium Chloride (Sodium Chlor 7% 4 Ml Neb) 4 ml NEB BIDR PRN PRN Reason: cough Stop: 09/29/21 18:59 (1) Pneumonia Laterality: bilateral Lung location: lower lobe of lung Pneumonia type: due to unspecified organism Qualified Code(s): J18.9 - Pneumonia, unspecified organism
[2021-08-30] MEDS ORDERED: SODIUM CHLOR 7% 4 ML NEB NEB SCH (19:00)
[2021-08-30] MEDS: ACETAMINOPHEN 325 MG TAB PO PRN (20:19)
[2021-08-30] MEDS: FAMOTIDINE 20 MG TAB PO SCH (20:20)
[2021-08-30] MEDS: CITALOPRAM 20 MG TAB PO SCH (20:21)
[2021-08-30] MEDS: ENOXAPARIN INJ 40 MG/0.4 ML SYR SQ SCH (20:21)
[2021-08-30] MEDS: lisinopril 10 MG TAB PO SCH (20:21)
[2021-08-30] MEDS ORDERED: guaiFENesin 600 MG TABCR PO SCH (21:00)
[2021-08-31] MEDS: ALBUT/IPRATROP 3MG/0.5MG NEB 3 ML VIAL NEB PRN ×4 (07:19→19:11)
[2021-08-31] MEDS: ACETYLCYSTEINE 20% INHAL SOLN 4ML ***DISPENSED BY RESP. INH SCH ×2 (07:19→19:11)
[2021-08-31] MEDS: ACETAMINOPHEN 325 MG TAB PO PRN ×2 (08:57→21:14)
[2021-08-31] MEDS: methylPREDNISolone 40 MG in SYRINGE 0 ML IV SCH ×3 (08:58→23:02)
[2021-08-31] MEDS: AZITHROMYCIN 250 MG TAB PO SCH (08:58)
[2021-08-31] MEDS: guaiFENesin 600 MG TABCR PO SCH ×2 (08:58→21:06)
[2021-08-31] MEDS: PANTOprazole 40 MG TAB PO SCH (08:59)
[2021-08-31] MEDS: FEXOFENADINE HCL 180 MG TAB PO SCH (08:59)
[2021-08-31] MEDS: cefTRIAXone SODIUM 2,000 MG in DEXTROSE 5% 50 ML IV SCH (12:10)
--- NOTE | 2021-08-31 14:38 | Hospitalist Progress Note ---
Date of Service August 31, 2021 Assessment & Plan (1) Acute respiratory failure with hypoxia: (2) Pneumonia: (3) Hypertension: (4) Tobacco use: Plan: Acute respiratory failure with hypoxia- due to PNA- wean down oxygen as tolerated, improving CAP- 1st episode. states she had her pneumonia vaccination. - Continue empiric rocephin/zithro pending sputum clx results. blood clx negative - Slow to improve; Continue nebs, mucomyst, mucinex, nebs, flutter valve, IS. Vest therapy added - Will add iv solumedrol given chest tightness and wheezing- will reevaluate in am. If not improving, will consider pulm evaluation CTA chest . There is no evidence of pulmonary embolus in the main, lobar, or segmental pulmonary arteries. 2. Multifocal groundglass consolidation is seen throughout both lungs, most confluent at the right lung base. This is typical for an infectious/inflammatory pneumonitis and radiographic follow-up to resolution is recommended. 3. Mildly enlarged hilar lymph nodes are likely reactive. Tobacco abuse- recommended quitting. Declined nicoderm patch HTN- chronic, stable, continue lisinopril GERD- continue PPI, pepcid DVT prophylaxis- sc lovenox Dispo- Continue inpatient management. Discharge home when able to wean off oxygen, otherwise will need to arrange home oxygen Admission and Anticipated Discharge Date Admission Date: August 28, 2021 Subjective No new issues. [place] some chest tightness and wheezing. States mucomyst helping somewhat to loosen the phlegm. Weaning down oxygen slowly. Ambulates in the room. No other issues. Physical Exam Physical Exam: General: Lying comfortably in bed, not in distress, on NC HEENT: EOMI, RONALD, MMM Chest: Bilateral expiratory wheezes CVS: Regular rate and rhythm, normal heart sounds, no murmur Abdomen: Soft, non tender, not distended, normal bowel sounds Neuro: Awake, alert, oriented, conversing well, non focal Extremities: No cyanosis, clubbing or edema Results & Data Results & Data ([facility]) Vital Signs (Past 12 Hours) Vital Signs Temp Pulse Resp BP Pulse Ox 08/31/21 14:30 68 20 89 L 08/31/21 11:37 87 18 91 08/31/21 07:22 62 20 92 08/31/21 07:15 36.4 C L 68 18 135/78 91 Medications Administered Current Inpatient Medications Acetaminophen (Acetaminophen 325 Mg Tab) 650 mg PO Q4H PRN PRN Reason: pain/fever Stop: 09/27/21 16:46 Last Admin: 08/31/21 08:57 Dose: 650 mg Documented by: Acetylcysteine (Acetylcysteine 20% Inhal Soln 4ml Dispensed By Resp.) 5 ml INH BID [facility] Stop: 09/29/21 12:29 Last Admin: 08/31/21 07:19 Dose: 5 ml Documented by: Albuterol (Albut/Ipratrop 3mg/0.5mg Neb 3 Ml Vial) 3 ml NEB Q4R PRN; Protocol PRN Reason: shortness of breath Stop: 09/27/21 16:46 Last Admin: 08/31/21 14:26 Dose: 3 ml Documented by: Azithromycin (Azithromycin 250 Mg Tab) 500 mg PO QAM [facility] Stop: 09/10/21 08:59 Last Admin: 08/31/21 08:58 Dose: 500 mg Documented by: Citalopram Hydrobromide (Citalopram 20 Mg Tab) 20 mg PO [facility] Stop: 09/27/21 20:59 Last Admin: 08/30/21 20:21 Dose: 20 mg Documented by: Enoxaparin Sodium (Enoxaparin Inj 40 Mg/0.4 Ml Syr) 40 mg SQ Q24H [facility] Stop: 09/27/21 17:59 Last Admin: 08/30/21 20:21 Dose: 40 mg Documented by: Famotidine (Famotidine 20 Mg Tab) 20 mg PO [facility] Stop: 09/27/21 20:59 Last Admin: 08/30/21 20:20 Dose: 20 mg Documented by: Fexofenadine HCl (Fexofenadine Hcl 180 Mg Tab) 180 mg PO QAM [facility] Stop: 09/28/21 08:59 Last Admin: 08/31/21 08:59 Dose: 180 mg Documented by: Guaifenesin (Guaifenesin 600 Mg Tabcr) 1,200 mg PO Q12 [facility] Stop: 09/29/21 11:59 Last Admin: 08/31/21 08:58 Dose: 1,200 mg Documented by: Ceftriaxone Sodium 2,000 mg/ (Dextrose) 70 mls @ 140 mls/hr IV Q24H [facility] Stop: 09/05/21 11:59 Last Infusion: 08/31/21 12:57 Dose: Infused Documented by: Methylprednisolone 40 mg/ (Syringe) 0.64 mls @ 1.5 mls/min IV Q8H [facility] Stop: 09/30/21 07:59 Last Admin: 08/31/21 08:58 Dose: 1.5 mls/min Documented by: Lisinopril (Lisinopril 10 Mg Tab) 10 mg PO HS [facility] Stop: 09/27/21 20:59 Last Admin: 08/30/21 20:21 Dose: 10 mg Documented by: Pantoprazole Sodium (Pantoprazole 40 Mg Tab) 40 mg PO QAM [facility] Stop: 09/28/21 08:59 Last Admin: 08/31/21 08:59 Dose: 40 mg Documented by: Sodium Chloride (Sodium Chlor 7% 4 Ml Neb) 4 ml NEB BIDR PRN PRN Reason: cough Stop: 09/29/21 18:59 (1) Pneumonia Laterality: bilateral Lung location: lower lobe of lung Pneumonia type: due to unspecified organism Qualified Code(s): J18.9 - Pneumonia, unspecified organism
[2021-08-31] MEDS: CITALOPRAM 20 MG TAB PO SCH (21:06)
[2021-08-31] MEDS: lisinopril 10 MG TAB PO SCH (21:06)
[2021-08-31] MEDS: FAMOTIDINE 20 MG TAB PO SCH (21:06)
[2021-08-31] MEDS: ENOXAPARIN INJ 40 MG/0.4 ML SYR SQ SCH (21:06)
[2021-09-01] MEDS: ACETYLCYSTEINE 20% INHAL SOLN 4ML ***DISPENSED BY RESP. INH SCH (06:57)
[2021-09-01] MEDS: ALBUT/IPRATROP 3MG/0.5MG NEB 3 ML VIAL NEB PRN ×4 (06:58→19:13)
[2021-09-01] MEDS: AZITHROMYCIN 250 MG TAB PO SCH (08:04)
[2021-09-01] MEDS: methylPREDNISolone 40 MG in SYRINGE 0 ML IV SCH (08:04)
[2021-09-01] MEDS: FEXOFENADINE HCL 180 MG TAB PO SCH (08:04)
[2021-09-01] MEDS: PANTOprazole 40 MG TAB PO SCH (08:04)
[2021-09-01] MEDS: guaiFENesin 600 MG TABCR PO SCH ×2 (08:04→21:13)
[2021-09-01] MEDS: cefTRIAXone SODIUM 2,000 MG in DEXTROSE 5% 50 ML IV SCH (11:40)
--- NOTE | 2021-09-01 13:34 | Pulmonary Consultation ---
Date of Consultation September 01, 2021 Assessment & Plan (1) Pneumonia: I suspect that she has community-acquired pneumonia. Agree with antibiotic choice at this time. Can likely transition to p.o. antibiotics in the next 1 to 2 days. We will discontinue IV Solu-Medrol at this time and transition her to p.o. prednisone tomorrow. The use of prednisone is not necessarily indicated in bacterial infection, but there may be a concommitment COPD exacerbation given her smoking history. Agree with airway clearance therapy including vest therapy, flutter valve and incentive spirometer. 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 We will also check a urine Legionella antigen. I discussed with her the role of bronchoscopy which be a more invasive test to evaluate for infectious/inflammatory etiology. She would like to hold off on bronchoscopy at this time but she does feel better. I anticipate that she will need a 7-day course of antibiotics. Laterality: bilateral Lung location: lower lobe of lung Pneumonia type: due to unspecified organism Qualified Code(s): J18.9 - Pneumonia, unspecified organism (2) Acute respiratory failure with hypoxia: Secondary to the above. She understands that she may need to be discharged home on oxygen for short period of time depending on her recovery. PFTs recommended as an outpatient in 6 to 8 weeks after she is fully recovered. (3) Tobacco use: Counseled on complete smoking cessation. History of Present Illness Reason for Consultation: Pneumonia Attending Physician: Imtiaz Jaramillo MD History of Present Illness 61-year-old female with a past medical history of tobacco abuse, hypertension and GERD who presented to the hospital 08/28/2021 due to increasing shortness of breath for the past week. She also has a cough that is productive of yellow sputum. She denies any fevers or chills. He denies chest pain, nausea or vomiting. She notes that her energy levels have been significantly decreased, but over the course of this hospital stay she does feel about "80% better". She is still requiring 3 L of oxygen and saturating in the low 90s. She notes that she smokes 1 pack of cigarettes per day for the past 30 to 40 years. She denies ever being told of asthma or COPD. She does not use inhalers. She denies ever having any significant pneumonia requiring hospitalization. She has noted a history of acute bronchitis episodes requiring antibiotics over the past 2 to 3 years. Labs are generally unremarkable. COVID-19 testing and flu testing on hospital admission were negative. Chest CTA 08/28/2021 revealed multifocal groundglass opacities throughout both lungs with most confluent area in the right lung base. She does have a 2.1 cm right adrenal adenoma. Mild adenopathy was noted in the mediastinum. Allergies Allergy/AdvReac Type Severity Reaction Status Date / Time bee venom protein (honey bee) Allergy Severe Anaphylaxis Unverified 08/28/21 14:30 Home Medications Medication Instructions Recorded Confirmed Type Bifidobacterium infantis 4 mg 4 mg PO QAM 08/28/21 08/28/21 History capsule (Align) azelastine 205.5 mcg (0.15 %) 1 spray INTRANASAL BID 08/28/21 08/28/21 History nasal spray citalopram 20 mg tablet 20 mg PO HS 08/28/21 08/28/21 History epinephrine 0.3 mg/0.3 mL 0.3 mg IM UD PRN 08/28/21 08/28/21 History injection, auto-injector famotidine 20 mg tablet (Pepcid AC) 20 mg PO HS 08/28/21 08/28/21 History fexofenadine 180 mg tablet 180 mg PO QAM 08/28/21 08/28/21 History fluticasone propionate 50 1 spray INTRANASAL BID 08/28/21 08/28/21 History mcg/actuation nasal spray,suspension ibuprofen 200 mg tablet 200 mg PO Q6H PRN 08/28/21 08/28/21 History lisinopril 10 mg tablet 10 mg PO HS 08/28/21 08/28/21 History meloxicam 15 mg tablet 15 mg PO DAILY 08/28/21 08/28/21 History omeprazole 20 mg capsule,delayed 20 mg PO QAM 08/28/21 08/28/21 History release Patient History Medical History Depression GERD (gastroesophageal reflux disease) Hypertension Seasonal allergies Tobacco use WPW (Xzqjg-Sknicmknt-Ncydm syndrome) Surgical History H/O: hysterectomy History of hip replacement History of shoulder surgery Family History Father Diabetes Mother Diabetes Social History Smoking Status: Current every day smoker Do You Dip or Chew Tobacco: No; Hx Alcohol Use: Yes Alcohol type: beer Alcohol Intake Frequency: 2-3 x/Week Hx Substance Use: No Preferred Language: Montenegrin Communication Ability: Effective Advertising Executive Required: No Beliefs That Will Affect Care: None Current Living Situation: Family Feels Safe at Home: Yes Safety Concerns: Feels Safe At This Time Assistive Devices: None Review of Systems Review of Systems: All systems reviewed & are unremarkable except as noted in HPI & below Physical Exam Physical Exam: Constitutional: Patient appears to be of their stated age. Pa tient is in no apparent distress. Patient is well-developed. Eyes: Pupils are equal round and reactive to light. Conjunctivae are normal. Anicteric sclera. Ears nose, mouth and throat: Mallampati class 2. Normal posterior oropharynx. Uvula is midline. Neck: Trachea is midline. Visual inspection is normal. Respiratory: Mild inspiratory wheeze. Mild crackles. No increased work of breathing. Cardiovascular: Regular rate and rhythm. No murmurs. No edema. Gastrointestinal: Normal bowel sounds, soft, nontender and nondistended. No hepatosplenomegaly noted. Musculoskeletal: No cyanosis. Patient is able to move all extremities. Strength is 5 out of 5 in the upper and lower extremities. Skin: No rashes, warm dry and intact. Neurologic: No obvious focal neurological deficits seen. Psychiatric: Alert and oriented x3 with a euthymic affect. Results & Data Results & Data ([facility]) Vital Signs (Past 12 Hours) Vital Signs Temp Pulse Resp BP Pulse Ox 09/01/21 11:06 85 18 92 09/01/21 07:56 36.7 C 67 16 144/67 H 90 09/01/21 06:58 81 16 86 L PG Care Time/CCT Total # of Minutes Spent Total Time Spent with Patient: Total time spent is greater than 50% in coordination of care (as documented) at patient's floor/unit and/or counseling patient: Coding Level of Care Code 21805 Inpt Consult Level 5 Diagnoses Acute respiratory failure with hypoxia J96.01 Pneumonia J18.9 Laterality: bilateral Lung location: lower lobe of lung Pneumonia type: due to unspecified organism Tobacco use Z72.0
--- NOTE | 2021-09-01 15:38 | Hospitalist Progress Note ---
Date of Service September 01, 2021 Assessment & Plan (1) Acute respiratory failure with hypoxia: (2) Pneumonia: (3) Hypertension: (4) Tobacco use: Plan: Acute respiratory failure with hypoxia- due to PNA- wean down oxygen as tolerated, improving but slow to improve. Might need home oxgyen for short time CAP- 1st episode. states she had her pneumonia vaccination. - Continue empiric rocephin/zithro. Sputum and blood clx negative. - Slow to improve; Continue nebs, mucomyst, mucinex, nebs, flutter valve, IS, vest therapy - Consulted pulm given slow improvement- no bronchoscopy for now. OP PFTs in 6-8 weeks. Follow up on resp biofire and legionella antigen CTA chest 08/28- 1. There is no evidence of pulmonary embolus in the main, lobar, or segmental pulmonary arteries. 2. Multifocal groundglass consolidation is seen throughout both lungs, most confluent at the right lung base. This is typical for an infectious/inflammatory pneumonitis and radiographic follow-up to resolution is recommended. 3. Mildly enlarged hilar lymph nodes are likely reactive. Tobacco abuse- recommended quitting. Declined nicoderm patch HTN- chronic, stable, continue lisinopril GERD- continue PPI, pepcid DVT prophylaxis- sc lovenox Dispo- Continue inpatient management with iv ABx- Discharge home hopefully in next couple if continues to improve- might need home oxygen if unable to wean off Admission and Anticipated Discharge Date Admission Date: August 28, 2021 Subjective She feels slightly better but kind of disappointed that she has not improved much. Still on oxygen. Bringing some phlegm out. No fever, chills, chest pain. Physical Exam Physical Exam: General: Lying comfortably in bed, not in distress, on NC HEENT: EOMI, RONALD, MMM Chest: Fair breath sounds with bilateral mild crackles CVS: Regular rate and rhythm, normal heart sounds, no murmur Abdomen: Soft, non tender, not distended, normal bowel sounds Neuro: Awake, alert, oriented, conversing well, non focal Extremities: No cyanosis, clubbing or edema Results & Data Results & Data ([facility]) Vital Signs (Past 12 Hours) Vital Signs Temp Pulse Resp BP Pulse Ox 09/01/21 15:25 78 16 89 L 09/01/21 14:59 36.8 C 75 16 157/79 H 91 09/01/21 11:06 85 18 92 09/01/21 07:56 36.7 C 67 16 144/67 H 90 09/01/21 06:58 81 16 86 L Medications Administered Current Inpatient Medications Acetaminophen (Acetaminophen 325 Mg Tab) 650 mg PO Q4H PRN PRN Reason: pain/fever Stop: 09/27/21 16:46 Last Admin: 08/31/21 21:14 Dose: 650 mg Documented by: Albuterol (Albut/Ipratrop 3mg/0.5mg Neb 3 Ml Vial) 3 ml NEB Q4R PRN; Protocol PRN Reason: shortness of breath Stop: 09/27/21 16:46 Last Admin: 09/01/21 15:25 Dose: 3 ml Documented by: Azithromycin (Azithromycin 250 Mg Tab) 500 mg PO QAM [facility] Stop: 09/10/21 08:59 Last Admin: 09/01/21 08:04 Dose: 500 mg Documented by: Citalopram Hydrobromide (Citalopram 20 Mg Tab) 20 mg PO [facility] Stop: 09/27/21 20:59 Last Admin: 08/31/21 21:06 Dose: 20 mg Documented by: Enoxaparin Sodium (Enoxaparin Inj 40 Mg/0.4 Ml Syr) 40 mg SQ Q24H [facility] Stop: 09/27/21 17:59 Last Admin: 08/31/21 21:06 Dose: 40 mg Documented by: Famotidine (Famotidine 20 Mg Tab) 20 mg PO [facility] Stop: 09/27/21 20:59 Last Admin: 08/31/21 21:06 Dose: 20 mg Documented by: Fexofenadine HCl (Fexofenadine Hcl 180 Mg Tab) 180 mg PO QAM [facility] Stop: 09/28/21 08:59 Last Admin: 09/01/21 08:04 Dose: 180 mg Documented by: Guaifenesin (Guaifenesin 600 Mg Tabcr) 1,200 mg PO Q12 [facility] Stop: 09/29/21 11:59 Last Admin: 09/01/21 08:04 Dose: 1,200 mg Documented by: Ceftriaxone Sodium 2,000 mg/ (Dextrose) 70 mls @ 140 mls/hr IV Q24H [facility] Stop: 09/05/21 11:59 Last Infusion: 09/01/21 12:31 Dose: Infused Documented by: Lisinopril (Lisinopril 10 Mg Tab) 10 mg PO HS [facility] Stop: 09/27/21 20:59 Last Admin: 08/31/21 21:06 Dose: 10 mg Documented by: Pantoprazole Sodium (Pantoprazole 40 Mg Tab) 40 mg PO QAM [facility] Stop: 09/28/21 08:59 Last Admin: 09/01/21 08:04 Dose: 40 mg Documented by: Prednisone (Prednisone 20 Mg Tab) 40 mg PO DAILY [facility] Stop: 10/02/21 08:59 Sodium Chloride (Sodium Chlor 7% 4 Ml Neb) 4 ml NEB BIDR PRN PRN Reason: cough Stop: 09/29/21 18:59 (1) Pneumonia Laterality: bilateral Lung location: lower lobe of lung Pneumonia type: due to unspecified organism Qualified Code(s): J18.9 - Pneumonia, unspecified organism
[2021-09-01 15:42] LABS: Adenovirus PCR Not Detected (NotDetected); Bordetella parapertussis PCR Not Detected (NotDetected); Bordetella pertussis PCR Not Detected (NotDetected); Chlamydia pneumoniae PCR Not Detected (NotDetected); Coronavirus 229E PCR Not Detected (NotDetected); Coronavirus CoV-2 (COVID19)PCR Not Detected (NotDetected); Coronavirus HKU1 PCR Not Detected (NotDetected); Coronavirus NL63 PCR Not Detected (NotDetected); Coronavirus OC43PCR Not Detected (NotDetected); Influenza A PCR Not Detected (NotDetected); Influenza B PCR Not Detected (NotDetected); Mycoplasma pneumoniae PCR Not Detected (NotDetected); Parainfluenza Virus 1 PCR Not Detected (NotDetected); Parainfluenza Virus 2 PCR Not Detected (NotDetected); Parainfluenza Virus 3 PCR Not Detected (NotDetected); Parainfluenza Virus 4 PCR Not Detected (NotDetected); Respiratory Syncytial VirusPCR Not Detected (NotDetected); Rhinovirus/Enterovirus PCR Not Detected (NotDetected)
[2021-09-01 15:46] LABS: Human Metapneumovirus PCR DETECTED (NotDetected)
[2021-09-01] MEDS: ACETAMINOPHEN 325 MG TAB PO PRN (21:12)
[2021-09-01] MEDS: ENOXAPARIN INJ 40 MG/0.4 ML SYR SQ SCH (21:13)
[2021-09-01] MEDS: FAMOTIDINE 20 MG TAB PO SCH (21:14)
[2021-09-01] MEDS: CITALOPRAM 20 MG TAB PO SCH (21:15)
[2021-09-01] MEDS: lisinopril 10 MG TAB PO SCH (21:15)
[2021-09-02] MEDS: ALBUT/IPRATROP 3MG/0.5MG NEB 3 ML VIAL NEB PRN ×2 (07:15→10:48)
[2021-09-02] MEDS: FEXOFENADINE HCL 180 MG TAB PO SCH (08:50)
[2021-09-02] MEDS: guaiFENesin 600 MG TABCR PO SCH (08:50)
[2021-09-02] MEDS: AZITHROMYCIN 250 MG TAB PO SCH (08:50)
[2021-09-02] MEDS: PANTOprazole 40 MG TAB PO SCH (08:50)
[2021-09-02] MEDS ORDERED: predniSONE 20 MG TAB PO SCH (09:00)
--- NOTE | 2021-09-02 10:29 | Pulmonology Progress Note ---
Date of Service September 02, 2021 Assessment & Plan (1) Bronchiolitis, acute: Plan: Her bio fire came back as positive for metapneumovirus. I suspect that she has infectious bronchiolitis. Continue prednisone for 5 to 7 days. She is at risk for superimposed bacterial infection. Can transition to oral antibiotics for a total ofl 5 days. MRSA screen was negative. Continue with mucociliary clearance therapy including flutter valve and incentive spirometer. Urine L egionella still pending. No role for bronchoscopy at this time. We will add ICS/LABA to her regimen. (2) Human metapneumovirus pneumonia: Plan: See above (3) Acute respiratory failure with hypoxia: Plan: Secondary to the above. She understands that she may need to be discharged home on oxygen for short period of time depending on her recovery. PFTs recommended as an outpatient in 6 to 8 weeks after she is fully recovered. (4) Tobacco use: Plan: Counseled on complete smoking cessation. Admission and Anticipated Discharge Date Admission Date: August 28, 2021 Subjective Patient seen and examined. She is currently in a droplet isolation room. She feels that her cough and shortness of breath have improved significantly. She still occasionally has a cough that is productive of phlegm. Review of Systems Review of Systems: All systems reviewed & are unremarkable except as noted in HPI & below Physical Exam Physical Exam: Constitutional: Patient appears to be of their stated age. Patient is in no apparent distress. Patient is well-developed. Eyes: Pupils are equal round and reactive to light. Conjunctivae are normal. Anicteric sclera. Ears nose, mouth and throat: Mallampati class 2. Normal posterior oropharynx. Uvula is midline. Neck: Trachea is midline. Visual inspection is normal. Respiratory: Mild inspiratory wheeze. Mild crackles. No increased work of breathing. Cardiovascular: Regular rate and rhythm. No murmurs. No edema. Gastrointestinal: Normal bowel sounds, soft, nontender and nondistended. No hepatosplenomegaly noted. Musculoskeletal: No cyanosis. Patient is able to move all extremities. Strength is 5 out of 5 in the upper and lower extremities. Skin: No rashes, warm dry and intact. Neurologic: No obvious focal neurological deficits seen. Psychiatric: Alert and oriented x3 with a euthymic affect. Results & Data Results & Data ([facility]) Vital Signs (Past 12 Hours) Vital Signs Temp Pulse Resp BP Pulse Ox 09/02/21 08:40 36.4 C L 68 16 141/77 H 91 09/02/21 07:17 60 16 94 09/01/21 23:38 36.5 C 73 16 163/83 H 97 PG Care Time/CCT Total # of Minutes Spent Total Time Spent with Patient: Total time spent is greater than 50% in coordination of care (as documented) at patient's floor/unit and/or counseling patient: Coding Level of Care Code 30221 Subseq Hosp Care Lvl 3 Diagnoses Acute respiratory failure with hypoxia J96.01 Tobacco use Z72.0 Bronchiolitis, acute J21.9 Human metapneumovirus pneumonia J12.3
[2021-09-02] MEDS ORDERED: FLUTICASONE/VILANTEROL 200/25MCG 14 PUFFS/INHALER INH SCH (10:45)
[2021-09-02] MEDS ORDERED: cefUROXime axetil 250 MG TABLET PO ONE (11:33)
--- NOTE | 2021-09-02 11:39 | Discharge Summary ---
Date of Service September 02, 2021 Admission HPI Per Admitting Provider 61-year-old female with PMH Libnr-Ntepsuuwy-Cicaz syndrome, HTN, depression, tobacco abuse, seasonal allergies, and other problems listed below who presents the ED for evaluation of cough and shortness of breath. 4 days ago, patient reports she developed cold-like symptoms and body aches. Cough has progressively worsened and patient reports shortness of breath with minimal exertion. Cough has been nonproductive. Patient reports he feels as though she is running a fever however did not check her temperature. Patient denies chest pain. No lightheadedness, dizziness, diaphoresis, syncopal events. Denies abdominal pain, nausea, vomiting, diarrhea. No urinary symptoms. Patient was seen at her PCPs office and was found to be hypoxic at 82%. She was then referred to the ED for further evaluation. In the ED, patient was requiring 4 L of oxygen via nasal cannula. CTA chest negative for pulmonary embolism however shows Multifocal groundglass consolidation is seen throughout both lungs, most confluent at the right lung base. This is typical for an infectious/inflammatory pneumonitis. Patient was given nebulizer treatment, IV ceftriaxone, IV Solu- Medrol 125 mg. Admission Exam Per Admitting Provider Constitutional: WD/WN, vitals as above Eyes: PERRL, conjunctivae normal, anicteric sclerae ENMT: external ear and nose normal, oropharynx normal Respiratory: normal respiratory effort; no respiratory distress Auscultation: + diminished lung sounds; no wheezes Cardiovascular: Rate/Rhythm: regular rate and regular rhythm Vessels: normal peripheral pulses Extremities: no edema Gastrointestinal (Abdomen): normal bowel sounds, soft, nontender, no hepatosplenomegaly Musculoskeletal: no cyanosis or clubbing, extremities motor strength 5/5 Skin: no rashes, warm and dry Neurologic: PERRL, EOMI, accommodation nl, no face palsy, no dysarthria Psychiatric: A+Ox3, euthymic affect Principal Diagnosis Infectious bronchiolitis due to human metapneumovirus with acute hypoxic respiratory failure Discharge Exam General: Lying comfortably in bed, not in distress, on NC HEENT: EOMI, RONALD, MMM Chest: Fair breath sounds with mild wheezes and crackles CVS: Regular rate and rhythm, normal heart sounds, no murmur Abdomen: Soft, non tender, not distended, normal bowel sounds Neuro: Awake, alert, oriented, conversing well, non focal Extremities: No cyanosis, clubbing or edema Discharge Data Allergies Allergy/AdvReac Type Severity Reaction Status Date / Time bee venom protein (honey bee) Allergy Severe Anaphylaxis Unverified 08/28/21 14:30 Consultations 08/28/21 14:21 ED Decision to Admit Stat 09/01/21 12:19 Consult Pulmonology Routine Ordered Studies 08/28/21 13:10 CT angio chest PE protocol Stat Laboratory Results WBC 8.20 K/uL (4.8-10.8) 08/29/21 06:35 RBC 4.71 M/uL (4.2-5.4) 08/29/21 06:35 Hgb 14.5 g/dL (12.0-16.0) 08/29/21 06:35 Hct 43.2 % (37-47) 08/29/21 06:35 MCV 91.7 fL (80-100) 08/29/21 06:35 MCH 30.8 pg (25-34) 08/29/21 06:35 MCHC 33.6 g/dL (32-36) 08/29/21 06:35 RDW Std Deviation 47.2 fL (36.4-46.3) H 08/29/21 06:35 RDW Coeff of Elmo 13.9 % (11.5-14.5) 08/29/21 06:35 Plt Count 192 K/uL (130-400) 08/29/21 06:35 MPV 10.3 fL (7.4-10.4) 08/29/21 06:35 Immature Gran % (Auto) 0.1 % 08/28/21 11:36 Neut % (Auto) 74.7 % 08/28/21 11:36 Lymph % (Auto) 15.7 % 08/28/21 11:36 [place] % (Auto) 9.0 % 08/28/21 11:36 Eos % (Auto) 0.4 % 08/28/21 11:36 Baso % (Auto) 0.1 % 08/28/21 11:36 Neut # (Auto) 5.40 K/uL (1.4-6.5) 08/28/21 11:36 Lymph # (Auto) 1.14 K/uL (1.2-3.4) L 08/28/21 11:36 [place] # (Auto) 0.65 K/uL (0.11-0.59) H 08/28/21 11:36 Eos # (Auto) 0.03 K/uL (0-0.5) 08/28/21 11:36 Baso # (Auto) 0.01 K/uL (0-0.2) 08/28/21 11:36 Immature Gran # (Auto) 0.01 K/uL (0.00-0.02) 08/28/21 11:36 PT 10.9 Seconds (9.0-12.0) 08/28/21 11:36 INR 1.0 (0.9-1.1) 08/28/21 11:36 APTT 33.9 Seconds (21.0-31.0) H 08/28/21 11:36 PTT Ratio 1.2 08/28/21 11:36 Sodium 139 mmol/L (136-145) 08/29/21 06:35 Potassium 3.7 mmol/L (3.5-5.1) 08/29/21 06:35 Chloride 102 mmol/L (98-107) 08/29/21 06:35 Carbon Dioxide 30 mmol/L (21-32) 08/29/21 06:35 Anion Gap 7 (3-11) 08/29/21 06:35 BUN 11 mg/dl (6-23) 08/29/21 06:35 Creatinine 0.58 mg/dl (0.6-1.2) L 08/29/21 06:35 Est Cr Clr Drug Dosing 124.9 ml/min 08/29/21 06:35 Est GFR ( Amer) 114.5 ml/min 08/29/21 06:35 Est GFR (Non-Af Amer) 98.8 ml/min 08/29/21 06:35 BUN/Creatinine Ratio 19.0 (10-20) 08/29/21 06:35 Glucose 106 mg/dl (70-99(Fasting)) H 08/29/21 06:35 Calcium 9.1 mg/dl (8.5-10.1) 08/29/21 06:35 Magnesium 2.0 mg/dl (1.7-2.4) 08/28/21 12:19 Total Bilirubin 0.5 mg/dl (0.2-1.0) 08/28/21 12:19 AST 28 U/L (13-39) 08/28/21 12:19 ALT 24 U/L (7-52) 08/28/21 12:19 Alkaline Phosphatase 99 U/L (34-104) 08/28/21 12:19 Total Protein 7.9 gm/dl (6.0-8.3) 08/28/21 12:19 Albumin 4.5 gm/dl (3.4-5.0) 08/28/21 12:19 Globulin 3.4 gm/dl (2.5-4.0) 08/28/21 12:19 Albumin/Globulin Ratio 1.3 (0.9-2) 08/28/21 12:19 Procalcitonin < 0.05 ng/ml (0-0.5) 08/28/21 11:36 Nasal Screen MRSA (PCR) Negative (Negative) 09/01/21 14:17 Adenovirus (PCR) Not Detected (NotDetected) 09/01/21 14:17 B. pertussis DNA (PCR) Not Detected (NotDetected) 09/01/21 14:17 B.parapertussis DNA PCR Not Detected (NotDetected) 09/01/21 14:17 C. pneumoniae DNA (PCR) Not Detected (NotDetected) 09/01/21 14:17 Coronavirus OC43 (PCR) Not Detected (NotDetected) 09/01/21 14:17 Coronavirus HKU1 (PCR) Not Detected (NotDetected) 09/01/21 14:17 Coronavirus 229E (PCR) Not Detected (NotDetected) 09/01/21 14:17 SARS-CoV-2 (PCR) Not Detected (NotDetected) 09/01/21 14:17 Coronavirus NL63 (PCR) Not Detected (NotDetected) 09/01/21 14:17 Human Metapneumovir PCR DETECTED (NotDetected) A* 09/01/21 14:17 Influenza Type A (PCR) Not Detected (NotDetected) 09/01/21 14:17 Influ A Molecular Assay Negative (Negative) 08/28/21 12:08 Influenza Type B (PCR) Not Detected (NotDetected) 09/01/21 14:17 Influ B Molecular Assay Negative (Negative) 08/28/21 12:08 M. pneumoniae (PCR) Not Detected (NotDetected) 09/01/21 14:17 Parainfluenza 1 (PCR) Not Detected (NotDetected) 09/01/21 14:17 Parainfluenza 2 (PCR) Not Detected (NotDetected) 09/01/21 14:17 Parainfluenza 3 (PCR) Not Detected (NotDetected) 09/01/21 14:17 Parainfluenza 4 (PCR) Not Detected (NotDetected) 09/01/21 14:17 RSV (PCR) Not Detected (NotDetected) 09/01/21 14:17 Entero/Rhino (PCR) Not Detected (NotDetected) 09/01/21 14:17 SARS-CoV-2, RNA, NAAT NEGATIVE (NEGATIVE) 08/28/21 11:36 Impressions Chest X-Ray 08/28/21 11:14 XR chest 1V portable CLINICAL HISTORY: SOB. COMPARISON STUDY: No previous studies for comparison. TECHNIQUE: 1 view of the chest FINDINGS: Single frontal view of the chest demonstrates the cardiomediastinal silhouette to be within normal limits. There is a decreased inspiratory effort with elevation of the hemidiaphragms and crowding of the bronchovascular markings at the lung bases and centrally. The lungs are clear of alveolar opacities. There is no evidence for pleural effusion. There is no evidence for vascular congestion. There is no acute osseous pathology. IMPRESSION: 1. There is a decreased inspiratory effort with otherwise no acute chest disease. ACT 112: Negative or not required by law. Electronically signed by: Vincent Forrest M.D. 08/28/2021 12:23 PM Chest CTA 08/28/21 13:10 CT ANGIOGRAM OF THE CHEST CLINICAL HISTORY: Dyspnea COMPARISON STUDY: Chest x-ray dated 08/28/2021. TECHNIQUE: Following the IV administration of 121 cc of Optiray 320, CT angiogram of the chest was performed from the upper abdomen to the thoracic inlet utilizing the pulmonary embolus protocol. Images are reviewed in the axial, sagittal, and coronal planes. 3-D MIPS images are created and assessed. IV contrast was administered without complication. A dose lowering technique was utilized adhering to the principles of ALARA. Examination is compromised by motion artifact. CT DOSE: 543.71 mGy.cm FINDINGS: Thyroid: Imaged portions of the thyroid gland are normal in size and atte nuation. Thoracic aorta: There is atherosclerotic calcification of the thoracic aorta, which is normal in caliber and demonstrates standard 3-vessel arch anatomy. No dissection is seen. Pulmonary vasculature: The pulmonary trunk is normal in caliber. There are no filling defects identified in main, lobar, or segmental pulmonary branches to suggest pulmonary embolus. Heart: The heart is normal in size and without pericardial effusion. There are coronary artery calcifications. Lungs and pleural spaces: Evaluation of the lung parenchyma is significantly degraded by motion artifact. There is patchy groundglass consolidation seen throughout both lungs, most confluent throughout the right lower lobe. No pleural effusion is identified. Scarring/atelectasis is noted in the right lung base. The trachea and central airways are clear. There is diffuse peribronchial thickening. Mediastinum: There is no mediastinal lymphadenopathy. [place]: Mildly enlarged hilar lymph nodes measure up to 14 mm in short axis. Axillae: There is no axillary lymphadenopathy. Upper abdomen: There is a 2.1 cm right adrenal adenoma. Partially visualized upper abdominal viscera is otherwise within normal limits. Skeletal structures: The skeletal structures are osteopenic. Mild degenerative change is seen throughout the thoracic spine. No lytic or blastic bony lesions are seen. IMPRESSION: 1. There is no evidence of pulmonary embolus in the main, lobar, or segmental pulmonary arteries. 2. Multifocal groundglass consolidation is seen throughout both lungs, most confluent at the right lung base. This is typical for an infectious/inflammatory pneumonitis and radiographic follow-up to resolution is recommended. 3. Mildly enlarged hilar lymph nodes are likely reactive. 4. Advanced coronary artery calcification. 5. Additional findings as above. ACT 112: Negative or not required by law. Electronically signed by: Cristhian Chavez M.D. 08/28/2021 1:58 PM Hospital Course (1) Acute respiratory failure with hypoxia: (2) Bronchiolitis, acute: (3) Human metapneumovirus pneumonia: (4) Hypertension: (5) Tobacco use: Acute respiratory failure with hypoxia due to below- 2 step O2 eval done. weaned off to room air at rest but requiring oxygen during ambulation. CM arranged for home oxygen. Follow up with PCP and pulm. Human metapneumovirus infection with infectious bronchiolitis - WBC normal, procal normal, afebrile, sputum culture negative, blood clx negative - Resp biofire positive for metapneumovirus - CT chest as below - S/p empiric rocephin/zithro. - Seen by pulm- recommendations noted- she is at increased risk of bacterial superinfection. Hence continue ceftin for 5 days. - Continue prednisone for 5 days. Continue breo. continue IS/flutter valve - OP follow up with pulm for PFTs in 6-8 weeks. CTA chest 08/28- 1. There is no evidence of pulmonary embolus in the main, lobar, or segmental pulmonary arteries. 2. Multifocal groundglass consolidation is seen throughout both lungs, most confluent at the right lung base. This is typical for an infectious/inflammatory pneumonitis and radiographic follow-up to resolution is recommended. 3. Mildly enlarged hilar lymph nodes are likely reactive. Tobacco abuse- recommended quitting. Reinforced again prior to discharge HTN- chronic, stable, continue lisinopril GERD- continue PPI, pepcid She is comfortable and stable for discharge home. Discharge plan reviewed. Total Time Total Time Spent Total Time Spent (In Minutes): 40 Discharge Plan Discharge Items Patient Disposition: Home - Self-Care Reason For Visit: PNEUMONIA, HYPOXIA Discharge Diagnosis: Infectious bronchiolitis due to human metapneumovirus infection with hypoxia Activity: Resume your previous activity Non-emergency contact: Primary Care Provider Call non-emergency contact if: you have any medication questions, your symptoms worsen and you have a fever Follow-up/Referrals: Viv Birmingham PA-C [Primary Care Provider] - (Date & Time 09/05/2021 1:40 PM Provider Viv Birmingham PA-C Department [facility] ) Diet: Regular Addtl Attending Provider Instructions: Continue the antibiotic as prescribed for 5 more days Continue prednisone for 5 more days Continue the flutter valve and incentive spirometer Continue the inhaler daily. Rinse mouth carefully afterward to prevent oral thrush. Continue home oxygen until you recover- follow with the family doctor to wean down Follow with the lung doctor to get pulmonary function test in about 6-8 weeks Quit smoking Recommend repeat CT chest in about 2-3 months to ensure resolution of the pneumonia If fever, chills, worsening shortness of breath or hypoxia, please come to the emergency Pending Studies at Discharge: Yes (urine legionella) Stand-Alone Forms: My [facility], Smoking Cessation Medications and DC Order Prescriptions: New prednisone 20 mg Tablet 40 mg PO DAILY Qty: 5 RF: 0 Breo Ellipta 200-25 mcg/dose Blister With Device 1 ea inhalation DAILY Qty: 28 RF: 0 guaifenesin [Mucinex] 600 mg Tablet Extended Release 12hr 1,200 mg PO Q12 Qty: 60 RF: 0 cefuroxime axetil 250 mg Tablet 250 mg PO DAILY Qty: 5 RF: 0 Continued fexofenadine [Tamara] 180 mg Tablet 180 mg PO QAM RF: 0 citalopram 20 mg tablet 20 mg PO HS RF: 0 famotidine [Pepcid AC] 20 mg Tablet 20 mg PO HS RF: 0 lisinopril 10 mg tablet 10 mg PO HS RF: 0 ibuprofen 200 mg Tablet 200 mg PO Q6H PRN (Reason: Pain) RF: 0 omeprazole 20 mg capsule,delayed release(DR/EC) 20 mg PO QAM RF: 0 epinephrine 0.3 mg/0.3 mL auto-injector 0.3 mg IM UD PRN (Reason: Anaphylaxis) RF: 0 fluticasone propionate 50 mcg/actuation spray,suspension 1 spray INTRANASAL BID RF: 0 Align 4 mg Capsule 4 mg PO QAM RF: 0 azelastine 205.5 mcg (0.15 %) spray,non-aerosol 1 spray INTRANASAL BID RF: 0 meloxicam 15 mg tablet 15 mg PO DAILY RF: 0 Discharge Orders: Discharge Order (Routine); Ordered 09/02/21 Ordered By: Imtiaz Jaramillo Admission Data Admit Date/Time: 08/28/21 14:28 Attending Provider: Imtiaz Jaramillo Admit Provider: Imtiaz Jaramillo Primary Care Provider: Viv Birmingham Other Providers: Imtiaz Jaramillo ; Louis Ramirez Other Interventions: Discharge Summary Assessment (RN) Last Done: 09/02/21 11:33
[2021-09-03] MEDS ORDERED: cefUROXime axetil 250 MG TABLET PO SCH (09:00)
== END 2021-09-02 14:46 | disposition home or self-care (01) | DRG 202 ==
LOC: ED 11:07 → 3N 14:28 → SUATTDRO 14:28 → 3N 15:55

== ENCOUNTER 2024-04-30 09:57 | Inpatient (IN) ==
[2024-04-30 10:37] LABS: Basophils # (auto) 0.02 K/uL (0.00-0.20); Basophils % (auto) 0.2 %; Eosinophils # (auto) 0.01 K/uL (0.00-0.50); Eosinophils % (auto) 0.1 %; Hematocrit (blood only) 41.8 % (37.0-47.0); Hemoglobin 14.1 g/dl (12.0-16.0); Immature Granulocytes # (auto) 0.05 K/uL (0.01-0.20); Immature Granulocytes % (auto) 0.5 %; Lymphocytes # (auto) 0.79 K/uL (1.20-3.40); Lymphocytes % (auto) 7.4 %; Mean Corpuscular Hemoglobin 30.6 pg (25.0-34.0); Mean Corpuscular Hgb Conc 33.7 g/dL (32.0-36.0); Mean Corpuscular Volume 90.7 fL (80.0-100.0); Mean Platelet Volume 10.6 fL (9.4-12.4); Monocytes # (auto) 1.44 K/uL (0.11-0.59); Monocytes % (auto) 13.5 %; Neutrophils # (auto) 8.37 K/uL (1.40-6.50); Neutrophils % (auto) 78.3 %; Platelet Count 161 K/uL (130-400); RDW Coefficient of Variation 14.2 % (11.5-14.5); RDW Standard Deviation 47.2 fL (36.4-46.3); Red Blood Count 4.61 M/uL (4.20-5.40); White Blood Count 10.68 K/ul (4.8-10.8)
--- NOTE | 2024-04-30 10:45 | XRay Report ---
EXAM: Radiograph of the Chest 1 View INDICATION: Shortness of breath. TECHNIQUE: Frontal view of the chest. COMPARISON: 08/28/2021 FINDINGS: Lungs and pleural spaces: There is mild airway thickening in the lower lung zones. No confluent consolidation, pleural effusion or pneumothorax. Heart: Shape and configuration within normal limits allowing for technique. Mediastinum: Normal contour. Bones/joints: Degenerative changes noted throughout the spine. No acute osseous abnormality seen. Soft tissues: No abnormality noted. No radiopaque foreign body noted. Upper abdomen: No abnormality noted. IMPRESSION: Mild airway thickening may reflect acute and/or chronic bronchitis. No pneumonia. ACT 112: Negative or not required by law. Electronically signed by Ladan Linder 04-30-2024 10:45 AM
[2024-04-30 10:55] LABS: Albumin Globulin Ratio 1.5 (0.9-2); Albumin Level 4.4 gm/dl (3.4-5.0); Bilirubin,Total 0.5 mg/dl (0.2-1.0); Calcium 9.1 mg/dl (8.6-10.3); Creatinine Clr Calc Pharmacy 63.3 ml/min; Potassium 4.1 mmol/L (3.5-5.1); Total Protein 7.4 gm/dl (6.0-8.3)
[2024-04-30 11:01] LABS: Troponin I High Sensitivity 6.2 pg/ml (0-14)
[2024-04-30 11:06] LABS: Partial Thromboplastin Ratio 1.4; Partial Thromboplastin Time 38 Seconds (21-31); Prothrombin Time 10.9 Seconds (9.0-12.0)
[2024-04-30 11:31] LABS: Adenovirus PCR Not Detected (NotDetected); Bordetella parapertussis PCR Not Detected (NotDetected); Bordetella pertussis PCR Not Detected (NotDetected); Chlamydia pneumoniae PCR Not Detected (NotDetected); Coronavirus 229E PCR Not Detected (NotDetected); Coronavirus CoV-2 (COVID19)PCR Not Detected (NotDetected); Coronavirus HKU1 PCR Not Detected (NotDetected); Coronavirus NL63 PCR Not Detected (NotDetected); Coronavirus OC43PCR Not Detected (NotDetected); Human Metapneumovirus PCR Not Detected (NotDetected); Influenza A (H3) PCR DETECTED (NotDetected); Influenza B PCR Not Detected (NotDetected); Mycoplasma pneumoniae PCR Not Detected (NotDetected); Parainfluenza Virus 1 PCR Not Detected (NotDetected); Parainfluenza Virus 2 PCR Not Detected (NotDetected); Parainfluenza Virus 3 PCR Not Detected (NotDetected); Parainfluenza Virus 4 PCR Not Detected (NotDetected); Respiratory Syncytial VirusPCR Not Detected (NotDetected); Rhinovirus/Enterovirus PCR Not Detected (NotDetected)
--- NOTE | 2024-04-30 11:53 | Electrocardiogram Report ---
Test Reason : Blood Pressure : */* mmHG Vent. Rate : 81 BPM Atrial Rate : 80 BPM P-R Int : 148 ms QRS Dur : 76 ms QT Int : 382 ms P-R-T Axes : 72 76 25 degrees QTcB Int : 443 ms Sinus rhythm with Premature atrial complexes Nonspecific ST and T wave abnormality Abnormal ECG When compared with ECG of 28-Aug-2021 11:25, ST no longer elevated in Inferior leads Nonspecific T wave abnormality no longer evident in Lateral leads Confirmed by Alex Holland [id number] on 04/30/2024 11:53:16 AM Referred By: Confirmed By: Alex Holland
--- NOTE | 2024-04-30 12:49 | Emergency Department Note ---
Impression & Plan Acute respiratory failure with hypoxia, Influenza A with pneumonia ED Provider Note NAME: DAISY ABEL AGE: 63 SEX: F : 1960 ARRIVES VIA: Walk-In INFORMANT: Patient, ED PROVIDER(S): Laura Cespedes MD CHIEF COMPLAINT: Shortness of breath, cough HPI: This is a 63-year-old female presenting for shortness of breath and cough. Patient notes exertional dyspnea. She feels like she is having worsening symptoms for last 4 days. She began feeling ill about 4 days ago. Progressively worsening cough, green/yellow sputum production. She reports she has previous episode of viral pneumonia requiring admission due to oxygen needs. She does smoke between 0.5 and 1 pack/day. No nausea or vomiting. No diarrhea. No chest pain. Does have bilateral rib pain with due to cough ROS: See above HPI for pertinent positives & negatives. A total of 10 systems reviewed and were otherwise negative. PAST MEDICAL HISTORY: See Below PAST SURGICAL HISTORY: See Below FAMILY HISTORY: See Below SOCIAL HISTORY: See Below HOME MEDICATIONS: See Below ALLERGIES: See Below VITALS: See Below PHYSICAL EXAMINATION: General: resting comfortably in no acute distress Head: Normocephalic and atraumatic Eyes: Normal inspection, extraocular muscles intact Ear, nose, throat: Normal external exam Neck: Normal range of motion Respiratory: lungs clear to auscultation bilaterally Cardiovascular: Regular rate/rhythm, no murmur GI: soft, nontender, no guarding or rebound Extremities: nontender, moves all extremities Neuro: The patient awake and alert, appropriately conversive, no focal deficits, symmetric faces Skin: Warm, dry, and intact MEDICAL DECISION MAKING: This is a 63-year-old female presented for shortness of breath/cough. Patient is hypoxic 86% currently. She is requiring 2 L to maintain oxygen saturations above 90. Likely either viral or bacterial pneumonia versus COPD exacerbation versus viral URI -Chest x-ray reveals no clear focal opacity upon independent interpretation -Will give patient methylprednisolone, 125 mg IV as well as albuterol treatment. Symptoms are most consistent with a COPD exacerbation -Upper respiratory panel is positive for influenza A -As patient is currently hypoxic, will admit for COPD exacerbation in setting of influenza -Care discussed with Dr. Talley for admission Differential diagnosis: COPD exacerbation, pneumonia, viral pneumonia, URI Independent History obtained from: [facility] interpreted by me: ECG: ECG independently interpreted by me with normal sinus rhythm, rate of 81, normal axis, normal W[place], normal QRS, normal QTc, no ST segment elevations consistent with STEMI criteria Cardiac Monitoring: An order was placed for continuous cardiac monitoring. The monitor shows a rate of 80 with sinus rhythm. Past Med/Surg History Problem List (Updated 04/30/24 @ 14:26 by Debbie Talley MD) Influenza A COPD (chronic obstructive pulmonary disease) Allergic rhinitis Mild persistent asthma Tobacco abuse Rbysu-Qknpkibwm-Zxmql syndrome Human metapneumovirus pneumonia Bronchiolitis, acute Tobacco use Hypertension Acute respiratory failure with hypoxia Pneumonia (Acute) Medical History (Updated 04/30/24 @ 14:26 by Debbie Talley MD) WPW (Juvwd-Chugzhbuq-Ivkno syndrome) Seasonal allergies Depression GERD (gastroesophageal reflux disease) Surgical History History of shoulder surgery History of hip replacement H/O: hysterectomy Family History Father Diabetes Mother Diabetes Social History (Updated 09/18/21 @ 12:35 by VERONICA Loew) Smoking Status: Current every day smoker Tobacco Type: Cigarettes Age Started Using Tobacco: 19; packs per day: 0.5; Do You Dip or Chew Tobacco: No; Hx Alcohol Use: Yes Alcohol type: beer Alcohol Intake Frequency: 2-3 x/Week Hx Substance Use: No Preferred Language: Anguillan Communication Ability: Effective Tube Coater Required: No Beliefs That Will Affect Care: None Current Living Situation: Family Feels Safe at Home: Yes Assistive Devices: None Allergies Allergies Allergy/AdvReac Type Severity Reaction Status Date / Time bee venom protein (honey bee) Allergy Severe Anaphylaxis Unverified 11/23/23 15:23 Home Meds Home Medications Medication Instructions Recorded Confirmed citalopram 20 mg tablet 20 mg PO HS 08/28/21 04/30/24 epinephrine 0.3 mg/0.3 mL 0.3 mg IM UD PRN Anaphylaxis 08/28/21 04/30/24 injection, auto-injector ibuprofen 200 mg tablet 200 mg PO Q6H PRN Pain 08/28/21 04/30/24 omeprazole 20 mg capsule,delayed 20 mg PO QAM 08/28/21 04/30/24 release carvedilol 3.125 mg tablet 3.125 mg PO BID 02/05/22 04/30/24 lisinopril 10 mg tablet 20 mg PO HS 02/05/22 04/30/24 rosuvastatin 20 mg tablet 20 mg PO DAILY 02/11/22 04/30/24 aspirin 81 mg chewable tablet 81 mg PO DAILY 04/30/24 04/30/24 cetirizine 10 mg tablet (Zyrtec) 10 mg PO HS 04/30/24 04/30/24 duloxetine 30 mg capsule,delayed 30 mg PO UD 04/30/24 04/30/24 release gabapentin 300 mg capsule 300 mg PO UD 04/30/24 04/30/24 Previous Rx's Medication Instructions Recorded albuterol sulfate 90 mcg/actuation 2 inh inhalation QID PRN shortness 06/10/23 aerosol inhaler of breath or wheezing #3 Inhalers montelukast 10 mg tablet 10 mg PO QPM #90 tabs 11/29/23 (Singulair) fluticasone fur. 200 mcg-umeclid 1 inh inhalation DAILY #60 ea 03/13/24 62.5 mcg-vilant 25 mcg inhalat.powder (Trelegy Ellipta) Results & Data (ED) Vital Signs Vital Signs - 24 hr 04/30/24 10:06 04/30/24 10:18 04/30/24 10:19 Temperature 35.7 C L Temperature Source Temporal Artery Scan Pulse Rate 91 H Pulse Rate [Apical] 80 Pulse Rate from SpO2 Sensor Pulse Rhythm Regular Pulse Rhythm [Apical] Irregular Pulse Strength Normal Respiratory Rate 20 17 Respiratory Effort / Characteristics Non-Labored Spontaneous Respiratory Depth Normal Respiratory Pattern Regular Blood Pressure 117/84 Blood Pressure [Left Arm] 119/67 Blood Pressure Mean 95 Blood Pressure Mean [Left Arm] 84 Blood Pressure Position Sitting Pulse Oximetry 87 L 86 L 92 Oxygen Delivery Method Room Air Nasal Cannula Nasal Cannula Oxygen Flow Rate 0 2 Sepsis Recent Fever Within 48 Hours No Sepsis New/Unexplained Change in Mental Status No Sepsis Action Taken by Nursing No Action Required Oxygen Flow Rate - Titration 2 Pulse Oximetry Post Tiitration 91 04/30/24 10:45 04/30/24 12:00 Temperature 36.8 C Temperature Source Oral Pulse Rate 75 Pulse Rate [Apical] 80 Pulse Rate from SpO2 Sensor 77 Pulse Rhythm Pulse Rhythm [Apical] Irregular Pulse Strength Respiratory Rate 17 20 Respiratory Effort / Characteristics Non-Labored Spontaneous Respiratory Depth Normal Respiratory Pattern Regular Blood Pressure Blood Pressure [Left Arm] 100/58 L Blood Pressure Mean Blood Pressure Mean [Left Arm] 72 Blood Pressure Position Pulse Oximetry 90 93 Oxygen Delivery Method Nasal Cannula Nasal Cannula Oxygen Flow Rate 2 2 Sepsis Recent Fever Within 48 Hours Sepsis New/Unexplained Change in Mental Status Sepsis Action Taken by Nursing Oxygen Flow Rate - Titration Pulse Oximetry Post Tiitration Laboratory Data 04/30/24 10:15 04/30/24 10:15 Lab Results 04/30/24 04/30/24 Range/Units 10:15 10:29 WBC 10.68 (4.8-10.8) K/ul RBC 4.61 (4.20-5.40) M/uL Hgb 14.1 (12.0-16.0) g/dl Hct 41.8 (37.0-47.0) % MCV 90.7 (80.0-100.0) fL MCH 30.6 (25.0-34.0) pg MCHC 33.7 (32.0-36.0) g/dL RDW Std Deviation 47.2 H (36.4-46.3) fL RDW Coeff of Elmo 14.2 (11.5-14.5) % Plt Count 161 (130-400) K/uL MPV 10.6 (9.4-12.4) fL Immature Gran % (Auto) 0.5 % Neut % (Auto) 78.3 % Lymph % (Auto) 7.4 % Benson % (Auto) 13.5 % Eos % (Auto) 0.1 % Baso % (Auto) 0.2 % Neut # (Auto) 8.37 H (1.40-6.50) K/uL Lymph # (Auto) 0.79 L (1.20-3.40) K/uL Benson # (Auto) 1.44 H (0.11-0.59) K/uL Eos # (Auto) 0.01 (0.00-0.50) K/uL Baso # (Auto) 0.02 (0.00-0.20) K/uL Immature Gran # (Auto) 0.05 (0.01-0.20) K/uL PT 10.9 (9.0-12.0) Seconds INR 1.0 (0.9-1.1) APTT 38 H (21-31) Seconds PTT Ratio 1.4 Sodium 134 L (136-145) mmol/L Potassium 4.1 (3.5-5.1) mmol/L Chloride 101 (98-107) mmol/L Carbon Dioxide 25 (21-32) mmol/L Anion Gap 8 (3-11) BUN 22 (6-23) mg/dl Creatinine 1.05 (0.6-1.2) mg/dl Est Cr Clr Drug Dosing 63.3 ml/min eGFR 59.33 BUN/Creatinine Ratio 21.0 H (10-20) Glucose 109 H (70-99(Fasting)) mg/dl Calcium 9.1 (8.6-10.3) mg/dl Total Bilirubin 0.5 (0.2-1.0) mg/dl AST 23 (13-39) U/L ALT 16 (7-52) U/L Alkaline Phosphatase 86 (34-104) U/L Troponin I High Sens 6.2 (0-14) pg/ml Total Protein 7.4 (6.0-8.3) gm/dl Albumin 4.4 (3.4-5.0) gm/dl Globulin 3.0 (2.5-4.0) gm/dl Albumin/Globulin Ratio 1.5 (0.9-2) Adenovirus (PCR) Not Detected (NotDetected) B. pertussis DNA (PCR) Not Detected (NotDetected) B.parapertussis DNA PCR Not Detected (NotDetected) C. pneumoniae DNA (PCR) Not Detected (NotDetected) Coronavirus OC43 (PCR) Not Detected (NotDetected) Coronavirus HKU1 (PCR) Not Detected (NotDetected) Coronavirus 229E (PCR) Not Detected (NotDetected) SARS-CoV-2 (PCR) Not Detected (NotDetected) Coronavirus NL63 (PCR) Not Detected (NotDetected) Human Metapneumovir PCR Not Detected (NotDetected) Influenza A (H3) PCR DETECTED A (NotDetected) Influenza Type B (PCR) Not Detected (NotDetected) M. pneumoniae (PCR) Not Detected (NotDetected) Parainfluenza 1 (PCR) Not Detected (NotDetected) Parainfluenza 2 (PCR) Not Detected (NotDetected) Parainfluenza 3 (PCR) Not Detected (NotDetected) Parainfluenza 4 (PCR) Not Detected (NotDetected) RSV (PCR) Not Detected (NotDetected) Entero/Rhino (PCR) Not Detected (NotDetected) Administered Medications Discontinued Medications Albuterol (Albuterol 0.5% Neb Soln 2.5 Mg/0.5 Ml Vial) 2.5 mg NEB NOW STA; Protocol Stop: 04/30/24 12:39 Last Admin: 04/30/24 13:01 Dose: 2.5 mg Documented By: NATHALIE Methylprednisolone (Methylprednisolone 125 Mg/2 Ml Vial) 125 mg IV NOW STA Stop: 04/30/24 12:39 Last Admin: 04/30/24 13:01 Dose: 125 mg Documented By: NATHALIE Imaging Data Radiologist's Impression: Chest X-Ray 04/30/24 10:21 EXAM: Radiograph of the Chest 1 View INDICATION: Shortness of breath. TECHNIQUE: Frontal view of the chest. COMPARISON: 08/28/2021 FINDINGS: Lungs and pleural spaces: There is mild airway thickening in the lower lung zones. No confluent consolidation, pleural effusion or pneumothorax. Heart: Shape and configuration within normal limits allowing for technique. Mediastinum: Normal contour. Bones/joints: Degenerative changes noted throughout the spine. No acute osseous abnormality seen. Soft tissues: No abnormality noted. No radiopaque foreign body noted. Upper abdomen: No abnormality noted. IMPRESSION: Mild airway thickening may reflect acute and/or chronic bronchitis. No pneumonia. ACT 112: Negative or not required by law. Electronically signed by Ladan Linder 04-30-2024 10:45 AM Discharge Plan Visit Data Chief Complaint: Shortness of Breath/Dyspnea Stated Complaint: LOW OX/MID 80'S, WEAK, COUGH, CONGESTION, SOB ED Provider: Laura Cespedes Discharge Problem: Acute respiratory failure with hypoxia, Influenza A with pneumonia Forms Stand Alone Forms: My [facility] [employer] Prescriptions Prescriptions: No Action albuterol sulfate 90 mcg/actuation HFA aerosol inhaler 2 inh inhalation QID PRN (Reason: shortness of breath or wheezing) Qty: 3 3RF Trelegy Ellipta 200-62.5-25 mcg blister with device 1 inh inhalation DAILY Qty: 60 3RF carvedilol 3.125 mg tablet 3.125 mg PO BID Rx Instructions: must administer with a meal/food rosuvastatin 20 mg tablet 20 mg PO DAILY montelukast [Singulair] 10 mg tablet 10 mg PO QPM Qty: 90 3RF citalopram 20 mg tablet 20 mg PO HS Rx Instructions: plans to stop and start cymbalta when she feels better ibuprofen 200 mg Tablet 200 mg PO Q6H PRN (Reason: Pain) omeprazole 20 mg capsule,delayed release(DR/EC) 20 mg PO QAM epinephrine 0.3 mg/0.3 mL auto-injector 0.3 mg IM UD PRN (Reason: Anaphylaxis) lisinopril 10 mg tablet 20 mg PO HS cetirizine [Zyrtec] 10 mg Tablet 10 mg PO HS gabapentin 300 mg capsule 300 mg PO UD Rx Instructions: hasnt started medication yet aspirin [Baby Aspirin] 81 mg Tablet,Chewable 81 mg PO DAILY duloxetine 30 mg capsule,delayed release(DR/EC) 30 mg PO UD Rx Instructions: plans to stop celexa and start Cymbalta but is waiting until she feels better to start it Referrals Referrals: Tsering Hicks MD [Primary Care Provider] -
--- NOTE | 2024-04-30 12:56 | History & Physical Report ---
Date of Service April 30, 2024 Assessment & Plan (1) Acute respiratory failure with hypoxia: (2) Influenza A: (3) COPD (chronic obstructive pulmonary disease): (4) Mild persistent asthma: (5) Allergic rhinitis: (6) Tobacco abuse: (7) Wirsr-Zqqjwgfru-Xdydy syndrome: Plan Ms. Larson is a 63 year old woman with past medical history remarkable for COPD/asthma, tobacco use, HTN, prior SVT/WPW, DJD lumbar spine admitted for acute hypoxic resp failure iso COPD exacerbation and Influenza A. #Acute hypoxic resp failure on NC #Influenza A infection #Acute COPD exacebation 2/2 viral illness #Mild persistent asthma overlap Follows Dr Ramirez On trelegy and albuterol prn increased cough, wheeze, sputum production Symptoms since Wednesday afternoon Start tamiflu for 5 days Start mucinex bid Methylpred 40mg IV daily Azithro x 5 days Flutter valve q 4 Duonebs q6h continue ICS/LAMA/LABA wean o2 as able #tobacco abuse: discussed tobacco cessation willing to trial patches #Allergic rhinitis: continue Singulair and cetritzine #DJD OP MRI showing DDD and spinal stenosis Patient has not started Cymbalta 30 mg daily and gabapentin 300 mg recently prescribed and does not wish to start this regimen yet Tylenol prn #Relative hypotension #HTN. hold lisinopril 20 mg daily, resume as able carvedilol 3.125 mg twice daily s/p NS 500 bolus #history WPW #history SVT continue carvedilol 3.125 mg twice daily. #Depression continue citalopram (has not discontinued yet, will when she starts cymbalta after she "recovers" ) #HLD. continue rosuvastatin 20 mg daily. admit med [facility] for copd exacerbation DVT lovenox PCP Dr. Marquise Hicks Admission and Anticipated Discharge Date Admission Date: Time spent evaluating patient, direct bedside care, chart review, placing orders, interpretation of diagnostic studies, discussion with consultants, patient, and family members, as well as other required patient management activities is 75 minutes. History of Present Illness Chief Complaint: SOB Primary Care Provider: Tsering Hicks MD Ms. Larson is a 63 year old woman with past medical history remarkable for COPD/asthma, tobacco use, HTN, prior SVT/WPW, DJD lumbar spine presented to [facility] ED due to SOB and wheezing. Patient states since Wednesday she has been feeling very SOB, with increase cough and sputum production. She has been using albuterol inhaler every 2-4 hours with minimal improvement. She reports her , who was present at bedside, was just recovering from a flu like illness last week. She notes poor po intake, subjective fevers, and myalgias. Patient reports she still actively smokes 0.5-1 ppd. She does note that since her last visit with Dr Ramirez she has been considering cessation and is agreeable to nictotine patches. She feels notable relief since admission s/p methylpred and nebulizer. In the ED, vitals were notable for BP of 90s-100s HR of 70s-90s and O2 sat of low-mid90s on 2L NC [employer] with Influenza A, NA 134 Imaging revealed acute v chronic bronchitis, no consolidations EKG qtc 443, pacs noted ED interventions: methylpred 125mg IV, albuterol Patient to be admitted to med/tele for further evaluation and management of acute hypoxic resp failure iso flu A/copd exacerbation Allergies Allergy/AdvReac Type Severity Reaction Status Date / Time bee venom protein (honey bee) Allergy Severe Anaphylaxis Unverified 11/23/23 15:23 Home Medications Medication Instructions Recorded Confirmed Type citalopram 20 mg tablet 20 mg PO HS 08/28/21 04/30/24 History epinephrine 0.3 mg/0.3 mL 0.3 mg IM UD PRN Anaphylaxis 08/28/21 04/30/24 History injection, auto-injector ibuprofen 200 mg tablet 200 mg PO Q6H PRN Pain 08/28/21 04/30/24 History omeprazole 20 mg capsule,delayed 20 mg PO QAM 08/28/21 04/30/24 History release carvedilol 3.125 mg tablet 3.125 mg PO BID 02/05/22 04/30/24 History lisinopril 10 mg tablet 20 mg PO HS 02/05/22 04/30/24 History rosuvastatin 20 mg tablet 20 mg PO DAILY 02/11/22 04/30/24 History albuterol sulfate 90 mcg/actuation 2 inh inhalation QID PRN shortness 06/10/23 04/30/24 Rx aerosol inhaler of breath or wheezing #3 Inhalers montelukast 10 mg tablet 10 mg PO QPM #90 tabs 11/29/23 04/30/24 Rx (Singulair) fluticasone fur. 200 mcg-umeclid 1 inh inhalation DAILY #60 ea 03/13/24 04/30/24 Rx 62.5 mcg-vilant 25 mcg inhalat.powder (Trelegy Ellipta) aspirin 81 mg chewable tablet 81 mg PO DAILY 04/30/24 04/30/24 History cetirizine 10 mg tablet (Zyrtec) 10 mg PO HS 04/30/24 04/30/24 History duloxetine 30 mg capsule,delayed 30 mg PO UD 04/30/24 04/30/24 History release gabapentin 300 mg capsule 300 mg PO UD 04/30/24 04/30/24 History Past Med/Surg History Problem List (Updated 04/30/24 @ 14:26 by Debbie Talley MD) Influenza A COPD (chronic obstructive pulmonary disease) Allergic rhinitis Mild persistent asthma Tobacco abuse Sifzh-Teizirbhe-Cqmbx syndrome Human metapneumovirus pneumonia Bronchiolitis, acute Tobacco use Hypertension Acute respiratory failure with hypoxia Pneumonia (Acute) Medical History (Updated 04/30/24 @ 14:26 by Debbie Talley MD) WPW (Qizye-Tgpqqmvzl-Jemyo syndrome) Seasonal allergies Depression GERD (gastroesophageal reflux disease) Surgical History History of shoulder surgery History of hip replacement H/O: hysterectomy Family History Father Diabetes Mother Diabetes Social History (Updated 09/18/21 @ 12:35 by VERONICA Lowe) Smoking Status: Current every day smoker Tobacco Type: Cigarettes Age Started Using Tobacco: 19; packs per day: 0.5; Do You Dip or Chew Tobacco: No; Hx Alcohol Use: Yes Alcohol type: beer Alcohol Intake Frequency: 2-3 x/Week Hx Substance Use: No Preferred Language: Cameroonian Communication Ability: Effective Customer Resource Specialist Required: No Beliefs That Will Affect Care: None Current Living Situation: Family Feels Safe at Home: Yes Assistive Devices: None Review of Systems Review of Systems: Constitutional: (+) fever/chills, (-) recent loss of weight, (-) appetite changes, (-) night sweats. Head: (+) headache, (-) dizziness. Eye: (-) blurring of vision, (-) double vision, (-) redness. Ear: (-) hearing loss, (-) discharge, (-) vertigo Nose: (-) discharge, (-) bleeding, (-) congestion, (-) post nasal drip. Throat: (-) sore throat, (-) hoarseness of voice, (-) odynophagia. Cardiovascular: (-) chest pain, (-) palpitations, (-) syncope, (-) orthopnea, (- ) PND, (-) leg swelling. Respiratory: (+) shortness of breath, (+) cough, (+) wheezing, (-) hemoptysis. Neuro: (-) weakness in extremities, (-) numbness, (-) tingling, (-) tremor. Gastrointestinal: (-) belly pain, (-) belly distension, (-) nausea, (-) vomiting, (-) diarrhea, (-) constipation, Genitourinary: (-) hematuria, (-) dysuria, (-) polyuria, (-) hesitancy, (-) frequency, (-) urinary incontinence. Musculoskeletal: (+) myalgia, (-) arthralgia. Skin: (-) rashes. Endocrine: (-) heat/cold intolerance. Psychiatry: (-) depression, (-) hallucination. Physical Exam Physical Exam: GENERAL APPEARANCE: AxOx4, tired appearing but otherwise comfortable HEENT: NC, AT. MMM. EOMI, clear conjunctiva, oropharynx clear. NECK: Supple without lymphadenopathy. No stiffness or restricted ROM. HEART: Normal rate and regular rhythm, normal S1/S1, no m/r/g LUNGS: tight, scattered expiratory wheezing, no cough elucidated ABDOMEN: Soft, nontender, nondistended with good bowel sounds heard. BACK: No CVAT, no obvious deformity. EXTREMITIES: Without cyanosis, clubbing or edema. NEUROLOGICAL: Grossly nonfocal. Alert and oriented, moving all 4 extremities. CN not formally tested but appear grossly intact.= Skin: Warm and dry without any rash. Results & Data Results & Data Vital Signs (Past 12 Hours) Vital Signs Temp Pulse Pulse Resp BP BP Pulse Ox 04/30/24 12:00 36.8 C 80 20 100/58 L 93 04/30/24 10:45 75 17 90 04/30/24 10:19 80 17 119/67 92 04/30/24 10:18 86 L 04/30/24 10:06 35.7 C L 91 H 20 117/84 87 L O2 Del Method O2 Flow Rate 04/30/24 12:00 Nasal Cannula 2 04/30/24 10:45 Nasal Cannula 2 04/30/24 10:19 Nasal Cannula 2 04/30/24 10:18 Nasal Cannula 0 04/30/24 10:06 Room Air Laboratory Results Short CBC 04/30/24 Range/Units 10:15 WBC 10.68 (4.8-10.8) K/ul Hgb 14.1 (12.0-16.0) g/dl Hct 41.8 (37.0-47.0) % Plt Count 161 (130-400) K/uL BMP 04/30/24 10:15 Sodium 134 L Potassium 4.1 Chloride 101 Carbon Dioxide 25 BUN 22 Creatinine 1.05 Glucose 109 H Calcium 9.1 Liver Function 04/30/24 Range/Units 10:15 Total Bilirubin 0.5 (0.2-1.0) mg/dl AST 23 (13-39) U/L ALT 16 (7-52) U/L Alkaline Phosphatase 86 (34-104) U/L Albumin 4.4 (3.4-5.0) gm/dl Diagnostic Findings Chest X-Ray 04/30/24 10:21 EXAM: Radiograph of the Chest 1 View INDICATION: Shortness of breath. TECHNIQUE: Frontal view of the chest. COMPARISON: 08/28/2021 FINDINGS: Lungs and pleural spaces: There is mild airway thickening in the lower lung zones. No confluent consolidation, pleural effusion or pneumothorax. Heart: Shape and configuration within normal limits allowing for technique. Mediastinum: Normal contour. Bones/joints: Degenerative changes noted throughout the spine. No acute osseous abnormality seen. Soft tissues: No abnormality noted. No radiopaque foreign body noted. Upper abdomen: No abnormality noted. IMPRESSION: Mild airway thickening may reflect acute and/or chronic bronchitis. No pneumonia. ACT 112: Negative or not required by law. Electronically signed by Ladan Linder 04-30-2024 10:45 AM Medications Administered Home Medications Medication Instructions Recorded Confirmed Last Taken citalopram 20 mg tablet 20 mg PO HS 08/28/21 04/30/24 08/27/21 epinephrine 0.3 mg/0.3 mL 0.3 mg IM UD PRN Anaphylaxis 08/28/21 04/30/24 Unknown injection, auto-injector ibuprofen 200 mg tablet 200 mg PO Q6H PRN Pain 08/28/21 04/30/24 08/27/21 19:00 600 mg omeprazole 20 mg capsule,delayed 20 mg PO QAM 08/28/21 04/30/24 04/30/24 release carvedilol 3.125 mg tablet 3.125 mg PO BID 02/05/22 04/30/24 04/30/24 lisinopril 10 mg tablet 20 mg PO HS 02/05/22 04/30/24 Unknown rosuvastatin 20 mg tablet 20 mg PO DAILY 02/11/22 04/30/24 Unknown albuterol sulfate 90 mcg/actuation 2 inh inhalation QID PRN shortness 06/10/23 04/30/24 Unknown aerosol inhaler of breath or wheezing #3 Inhalers montelukast 10 mg tablet 10 mg PO QPM #90 tabs 11/29/23 04/30/24 Unknown (Singulair) fluticasone fur. 200 mcg-umeclid 1 inh inhalation DAILY #60 ea 03/13/24 04/30/24 Unknown 62.5 mcg-vilant 25 mcg inhalat.powder (Trelegy Ellipta) aspirin 81 mg chewable tablet 81 mg PO DAILY 04/30/24 04/30/24 04/30/24 cetirizine 10 mg tablet (Zyrtec) 10 mg PO HS 04/30/24 04/30/24 Unknown duloxetine 30 mg capsule,delayed 30 mg PO UD 04/30/24 04/30/24 Unknown release gabapentin 300 mg capsule 300 mg PO UD 04/30/24 04/30/24 Unknown
[2024-04-30] MEDS: ALBUTEROL 0.5% NEB SOLN 2.5 MG/0.5 ML VIAL NEB STA (13:01)
[2024-04-30] MEDS: methylPREDNISolone 125 MG/2 ML VIAL IV STA (13:01)
[2024-04-30] MEDS: AZITHROMYCIN 250 MG TAB PO ONE (14:31)
[2024-04-30 14:35] LABS: Magnesium 1.9 mg/dl (1.7-2.4)
[2024-04-30] MEDS ORDERED: POLYETHYLENE (MIRALAX) 17 GM PACK PO PRN (14:50)
[2024-04-30] MEDS ORDERED: ALBUTEROL HFA 8 GM INHALER INH PRN (14:50)
[2024-04-30] MEDS ORDERED: LEVALBUTEROL HCL 0.63 MG/3 ML NEB NEB PRN (14:50)
[2024-04-30] MEDS: OSELTAMIVIR PHOSPHATE 75 MG CAP PO STA (15:59)
[2024-04-30] MEDS: ENOXAPARIN INJ 40 MG/0.4 ML SYR SQ SCH (15:59)
[2024-04-30] MEDS: SODIUM CHLORIDE 0.9% 500 ML IV ONE (16:04)
[2024-04-30] MEDS: carvediloL 3.125 MG TAB PO SCH (16:51)
[2024-04-30] MEDS: FLUTICASONE FUROATE 200MCG 14 PUFFS/INHALER INH SCH (16:52)
[2024-04-30] MEDS: UMECLIDINIUM/VILANTEROL 62.5/25MCG 7 PUFFS/INHALER INH SCH (16:52)
[2024-04-30] MEDS: NICOTINE 7 MG/24 HR TDSY TD SCH (16:53)
[2024-04-30] MEDS: ALBUT/IPRATROP 3MG/0.5MG NEB 3 ML VIAL NEB SCH (18:04)
[2024-04-30] MEDS: CITALOPRAM 20 MG TAB PO SCH (21:16)
[2024-04-30] MEDS: guaiFENesin 600 MG TABCR PO SCH (21:17)
[2024-04-30] MEDS: MONTELUKAST SODIUM 10 MG TABLET PO SCH (21:17)
[2024-04-30] MEDS: CETIRIZINE HCL 10 MG TABLET PO SCH (21:17)
[2024-04-30] MEDS: OSELTAMIVIR PHOSPHATE 75 MG CAP PO SCH (21:18)
[2024-04-30] MEDS: ACETAMINOPHEN 325 MG TAB PO PRN (21:21)
[2024-05-01] MEDS: lisinopril 20 MG TAB PO STA (00:08)
--- NOTE | 2024-05-01 08:37 | Hospitalist Progress Note ---
Date of Service May 01, 2024 Assessment & Plan (1) Acute respiratory failure with hypoxia: (2) Influenza A: (3) COPD (chronic obstructive pulmonary disease): (4) Mild persistent asthma: (5) Allergic rhinitis: (6) Tobacco abuse: (7) Zrrca-Ttjvmtdtw-Znysi syndrome: Plan Ms. Larson is a 63 year old woman with past medical history remarkable for COPD/asthma, tobacco use, HTN, prior SVT/WPW, DJD lumbar spine admitted for acute hypoxic resp failure iso COPD exacerbation and Influenza A. #Acute hypoxic resp failure #Influenza A infection #Acute COPD exacebation 2/2 viral illness Change IV solumedrol to prednisone Continue nebs Continue tamiflu to complete treatment Wean oxygen as tolerated #Tobacco abuse: Counseled regarding smoking cessation #Allergic rhinitis: Continue Singulair and cetritzine #DJD Outpatient MRI showing DDD and spinal stenosis Patient has not started Cymbalta 30 mg daily and gabapentin 300 mg recently prescribed and does not wish to start this regimen yet Tylenol prn #Hypertension Continue [employer] carvedilol, lisinopril #history WPW #history SVT continue carvedilol 3.125 mg twice daily. #Depression Currently on citalopram #HLD. Continue rosuvastatin 20 mg daily. DVT lovenox PCP Dr. Marquise Hicks I spent a total of 50 minutes coordinating, documenting and providing care for this patient excluding time spent in performance of separately billed services Admission and Anticipated Discharge Date Admission Date: April 30, 2024 Subjective Patient seen and examined Reports feeling better today Still reports cough. SOB improved No chest pain or wheezing Nausea is resolved Denied other complaints Physical Exam Constitutional: + well hydrated; no acute distress Eyes: PERRL, conjunctivae normal, anicteric sclerae ENMT: external ear and nose normal, oropharynx normal Respiratory: On nasal cannula, not in respiratory distress, diminished breath sounds Cardiovascular: Rate/Rhythm: regular rate and regular rhythm Gastrointestinal (Abdomen): normal bowel sounds, soft, nontender, no hepatosplenomegaly Musculoskeletal: No pedal edema Neurologic: PERRL, EOMI, accommodation nl, no face palsy, no dysarthria Psychiatric: A+Ox3, euthymic affect Results & Data Results & Data Vital Signs (Past 12 Hours) Vital Signs Temp Pulse Pulse Resp BP Pulse Ox O2 Del Method 05/01/24 08:30 36.7 C 67 16 157/74 H 98 Nasal Cannula 05/01/24 07:28 68 05/01/24 07:20 68 18 91 Nasal Cannula 05/01/24 03:14 36.5 C 67 16 113/86 93 Nasal Cannula 05/01/24 00:43 69 16 91 Nasal Cannula 04/30/24 23:29 Nasal Cannula 04/30/24 23:26 73 04/30/24 22:00 36.7 C 68 18 125/79 92 Nasal Cannula O2 Flow Rate 05/01/24 08:30 7.5 05/01/24 07:28 05/01/24 07:20 3 05/01/24 03:14 3 05/01/24 00:43 2 04/30/24 23:29 3 04/30/24 23:26 04/30/24 22:00 3 Laboratory Results Abnormal lab results 04/30/24 04/30/24 Range/Units 10:15 10:29 RDW Std Deviation 47.2 H (36.4-46.3) fL Neut # (Auto) 8.37 H (1.40-6.50) K/uL Lymph # (Auto) 0.79 L (1.20-3.40) K/uL [place] # (Auto) 1.44 H (0.11-0.59) K/uL APTT 38 H (21-31) Seconds Sodium 134 L (136-145) mmol/L BUN/Creatinine Ratio 21.0 H (10-20) Glucose 109 H (70-99(Fasting)) mg/dl Influenza A (H3) PCR DETECTED A (NotDetected)
[2024-05-01] MEDS ORDERED: methylPREDNISolone 125 MG/2 ML VIAL IV SCH (09:00)
[2024-05-01] MEDS: AZITHROMYCIN 250 MG TAB PO SCH (10:19)
[2024-05-01] MEDS: methylPREDNISolone 40 MG in SYRINGE 0 ML IV SCH (10:19)
[2024-05-01] MEDS: ASPIRIN 81 MG CHEW PO SCH (10:19)
[2024-05-01] MEDS: ROSUVASTATIN CALCIUM 20 MG TAB PO SCH (10:20)
[2024-05-01] MEDS: predniSONE 20 MG TAB PO SCH (11:48)
[2024-05-01] MEDS: lisinopril 20 MG TAB PO SCH (21:33)
[2024-05-02 08:02] LABS: Hematocrit (blood only) 41.5 % (37.0-47.0); Hemoglobin 13.6 g/dl (12.0-16.0); Mean Corpuscular Hemoglobin 29.8 pg (25.0-34.0); Mean Corpuscular Hgb Conc 32.8 g/dL (32.0-36.0); Mean Corpuscular Volume 90.8 fL (80.0-100.0); Mean Platelet Volume 10.6 fL (9.4-12.4); Platelet Count 178 K/uL (130-400); RDW Standard Deviation 46.9 fL (36.4-46.3); Red Blood Count 4.57 M/uL (4.20-5.40); White Blood Count 7.91 K/ul (4.8-10.8)
[2024-05-02 08:36] LABS: BUN Creatinine Ratio 47.5 (10-20); Calcium 9.5 mg/dl (8.6-10.3); Creatinine Clr Calc Pharmacy 108.3 ml/min; Potassium 4.9 mmol/L (3.5-5.1)
--- NOTE | 2024-05-02 09:44 | Hospitalist Progress Note ---
Date of Service May 02, 2024 Assessment & Plan (1) Acute respiratory failure with hypoxia: (2) Influenza A: (3) COPD (chronic obstructive pulmonary disease): (4) Mild persistent asthma: (5) Allergic rhinitis: (6) Tobacco abuse: (7) Rjnda-Mcsioltao-Iajvz syndrome: Plan 63 year old woman with past medical history remarkable for COPD/asthma, tobacco use, HTN, prior SVT/WPW, DJD lumbar spine admitted for acute hypoxic resp failure in the setting of COPD exacerbation and Influenza A. #Acute hypoxic resp failure #Influenza A infection #Acute COPD exacebation 2/2 viral illness Continue prednisone Continue nebs Continue tamiflu to complete treatment Wean oxygen as tolerated Will need 2 step prior to dc #Tobacco abuse: Counseled again regarding smoking cessation #Allergic rhinitis: Continue Singulair and cetritzine #DJD Outpatient MRI showing DDD and spinal stenosis Tylenol prn #Hypertension Continue [employer] carvedilol, lisinopril #history WPW #history SVT continue carvedilol 3.125 mg twice daily. #Depression Currently on citalopram #HLD. Continue rosuvastatin 20 mg daily. DVT lovenox PCP Dr. Marquise Hicks I spent a total of 50 minutes coordinating, documenting and providing care for this patient excluding time spent in performance of separately billed services Admission and Anticipated Discharge Date Admission Date: April 30, 2024 Subjective Patient seen and examined Reports cough and SOB are improving Denied chest pain or any other new complaints Physical Exam Constitutional: + well hydrated; no acute distress Eyes: PERRL, conjunctivae normal, anicteric sclerae ENMT: external ear and nose normal, oropharynx normal Respiratory: On nasal cannula, diminished breath sounds Cardiovascular: Rate/Rhythm: regular rate and regular rhythm Gastrointestinal (Abdomen): normal bowel sounds, soft, nontender, no hepatos plenomegaly Musculoskeletal: No pedal edema Neurologic: PERRL, EOMI, accommodation nl, no face palsy, no dysarthria Psychiatric: A+Ox3, euthymic affect Results & Data Results & Data Vital Signs (Past 12 Hours) Vital Signs Temp Pulse Pulse Resp BP BP Pulse Ox 05/02/24 09:35 05/02/24 09:33 91 05/02/24 07:21 36.4 C L 63 18 154/76 H 99 05/02/24 07:01 70 16 94 05/02/24 06:21 72 05/02/24 03:39 36.6 C 73 18 123/73 94 05/02/24 02:07 74 18 94 05/01/24 22:48 36.7 C 65 20 148/95 H 94 05/01/24 21:51 70 O2 Del Method O2 Flow Rate 05/02/24 09:35 Nasal Cannula 2 05/02/24 09:33 Room Air 2 05/02/24 07:21 Nasal Cannula 2 05/02/24 07:01 Nasal Cannula 2 05/02/24 06:21 05/02/24 03:39 Nasal Cannula 2 05/02/24 02:07 Nasal Cannula 2 05/01/24 22:48 Nasal Cannula 3 05/01/24 21:51 Laboratory Results Abnormal lab results 05/02/24 Range/Units 07:04 RDW Std Deviation 46.9 H (36.4-46.3) fL BUN 29 H (6-23) mg/dl BUN/Creatinine Ratio 47.5 H (10-20)
[2024-05-03 09:51] LABS: Hematocrit (blood only) 43.2 % (37.0-47.0); Hemoglobin 14.2 g/dl (12.0-16.0); Mean Corpuscular Hemoglobin 29.5 pg (25.0-34.0); Mean Corpuscular Hgb Conc 32.9 g/dL (32.0-36.0); Mean Corpuscular Volume 89.6 fL (80.0-100.0); Mean Platelet Volume 10.4 fL (9.4-12.4); Platelet Count 185 K/uL (130-400); RDW Coefficient of Variation 13.9 % (11.5-14.5); RDW Standard Deviation 45.6 fL (36.4-46.3); Red Blood Count 4.82 M/uL (4.20-5.40); White Blood Count 7.62 K/ul (4.8-10.8)
[2024-05-03 10:07] LABS: BUN Creatinine Ratio 51.9 (10-20); Calcium 9.6 mg/dl (8.6-10.3); Creatinine Clr Calc Pharmacy 127.7 ml/min
[2024-05-03 11:42] VITALS: TEMP 97.3
[2024-05-03 13:03] VITALS: RESP 18; O2SAT 90
--- NOTE | 2024-05-03 13:10 | Discharge Summary ---
Discharge Summary Date of Service May 03, 2024 Principal Dx & Hospital Course #1 = Principal Diagnosis (1) Acute respiratory failure with hypoxia: (2) Influenza A: (3) COPD (chronic obstructive pulmonary disease): (4) Mild persistent asthma: (5) Allergic rhinitis: (6) Tobacco abuse: (7) Knsqs-Rhkootawy-Arntt syndrome: Plan per Dr. Washburn's notes with addendum: 63 year old woman with past medical history remarkable for COPD/asthma, tobacco use, HTN, prior SVT/WPW, DJD lumbar spine admitted for acute hypoxic resp failure in the setting of COPD exacerbation and Influenza A. #Acute hypoxic resp failure #Influenza A infection #Acute COPD exacebation 2/ viral illness Continue prednisone Continue nebs Continue tamiflu to complete treatment 05/03 stable for discharge d/c plan: Azithro 250mg x 1 more day Tamiflu BID x 2 more days Duoneb QID x 7 days Mucinex BID x 7 days Prednisone taper: 40mg x 2 days, 30mg x 2 days, etc will need 1L O2 at rest and with ambulation #Tobacco abuse: Counseled again regarding smoking cessation #Allergic rhinitis: Continue Singulair and cetritzine #DJD Outpatient MRI showing DDD and spinal stenosis Tylenol prn #Hypertension Continue [employer] carvedilol, lisinopril #history WPW #history SVT continue carvedilol 3.125 mg twice daily. #Depression Currently on citalopram #HLD. Continue rosuvastatin 20 mg daily. DVT lovenox PCP Dr. Marquise Hicks d/c home today ff up with PCP in 1 week Notes For Next Care Provider Medication Changes From Visit Azithro 250mg x 1 more day Tamiflu BID x 2 more days Duoneb QID x 7 days Mucinex BID x 7 days Prednisone taper: 40mg x 2 days, 30mg x 2 days, etc will need 1L O2 at rest and with ambulation Admission HPI Per Admitting Provider Ms. Larson is a 63 year old woman with past medical history remarkable for COPD/asthma, tobacco use, HTN, prior SVT/WPW, DJD lumbar spine presented to [facility] ED due to SOB and wheezing. Patient states since Wednesday she has been feeling very SOB, with increase cough and sputum production. She has been using albuterol inhaler every 2-4 hours with minimal improvement. She reports her , who was present at bedside, was just recovering from a flu like illness last week. She notes poor po intake, subjective fevers, and myalgias. Patient reports she still actively smokes 0.5-1 ppd. She does note that since her last visit with Dr Ramirez she has been considering cessation and is agreeable to nictotine patches. She feels notable relief since admission s/p methylpred and nebulizer. In the ED, vitals were notable for BP of 90s-100s HR of 70s-90s and O2 sat of low-mid90s on 2L NC [employer] with Influenza A, NA 134 Imaging revealed acute v chronic bronchitis, no consolidations EKG qtc 443, pacs noted ED interventions: methylpred 125mg IV, albuterol Patient to be admitted to med[facility] for further evaluation and management of acute hypoxic resp failure iso flu A/copd exacerbation Admission Exam Per Admitting Provider GENERAL APPEARANCE: AxOx4, tired appearing but otherwise comfortable HEENT: NC, AT. MMM. EOMI, clear conjunctiva, oropharynx clear. NECK: Supple without lymphadenopathy. No stiffness or restricted ROM. HEART: Normal rate and regular rhythm, normal S1/S1, no m/r/g LUNGS: tight, scattered expiratory wheezing, no cough elucidated ABDOMEN: Soft, nontender, nondistended with good bowel sounds heard. BACK: No CVAT, no obvious deformity. EXTREMITIES: Without cyanosis, clubbing or edema. NEUROLOGICAL: Grossly nonfocal. Alert and oriented, moving all 4 extremities. CN not formally tested but appear grossly intact.= Skin: Warm and dry without any rash. Discharge Exam General- oriented x 3, not in distress, speaks in sentences with no effort or accessory muscle use Eyes- anicteric Neck- no JVD Lungs- intermittent faint scattered rhonchi BL no wheezing good air entry bilaterally Heart- normal rate, regular rhythm; no murmurs Abdomen- normal bowel sounds, nondistended, soft, nontender Extremities- no pretibial edema, no calf tenderness Neuro- alert, oriented x 3; no gross focal neurologic deficits Skin- warm & dry Updated Medication List Medication Instructions Recorded Confirmed Type citalopram 20 mg tablet 20 mg PO HS 08/28/21 04/30/24 History epinephrine 0.3 mg/0.3 mL 0.3 mg IM UD PRN Anaphylaxis 08/28/21 04/30/24 History injection, auto-injector ibuprofen 200 mg tablet 200 mg PO Q6H PRN Pain 08/28/21 04/30/24 History omeprazole 20 mg capsule,delayed 20 mg PO QAM 08/28/21 04/30/24 History release carvedilol 3.125 mg tablet 3.125 mg PO BID 02/05/22 04/30/24 History lisinopril 10 mg tablet 20 mg PO HS 02/05/22 04/30/24 History rosuvastatin 20 mg tablet 20 mg PO DAILY 02/11/22 04/30/24 History albuterol sulfate 90 mcg/actuation 2 inh inhalation QID PRN shortness 06/10/23 04/30/24 Rx aerosol inhaler of breath or wheezing #3 Inhalers montelukast 10 mg tablet 10 mg PO QPM #90 tabs 11/29/23 04/30/24 Rx (Singulair) fluticasone fur. 200 mcg-umeclid 1 inh inhalation DAILY #60 ea 03/13/24 04/30/24 Rx 62.5 mcg-vilant 25 mcg inhalat.powder (Trelegy Ellipta) aspirin 81 mg chewable tablet 81 mg PO DAILY 04/30/24 04/30/24 History cetirizine 10 mg tablet (Zyrtec) 10 mg PO HS 04/30/24 04/30/24 History duloxetine 30 mg capsule,delayed 30 mg PO UD 04/30/24 04/30/24 History release gabapentin 300 mg capsule 300 mg PO UD 04/30/24 04/30/24 History azithromycin 250 mg tablet 250 mg PO QAM 1 day #1 tab 05/03/24 Rx guaifenesin 600 mg tablet, 600 mg PO Q12 7 days #14 tabs 05/03/24 Rx extended release 12 hr (Mucinex) ipratropium 0.5 mg-albuterol 3 mg 3 ml NEB Q6R 7 days #90 mL 05/03/24 Rx (2.5 mg base)/3 mL nebulization soln oseltamivir 75 mg capsule (Tamiflu) 75 mg PO BID 2 days #4 caps 05/03/24 Rx prednisone 10 mg tablet 10 mg PO UD #20 tabs 05/03/24 Rx Hospital Stay Data Consultations 04/30/24 14:05 ED Decision to Admit Stat Diagnostic Imagining Performed CXR: EXAM: Radiograph of the Chest 1 View INDICATION: Shortness of breath. TECHNIQUE: Frontal view of the chest. COMPARISON: 08/28/2021 FINDINGS: Lungs and pleural spaces: There is mild airway thickening in the lower lung zones. No confluent consolidation, pleural effusion or pneumothorax. Heart: Shape and configuration within normal limits allowing for technique. Mediastinum: Normal contour. Bones/joints: Degenerative changes noted throughout the spine. No acute osseous abnormality seen. Soft tissues: No abnormality noted. No radiopaque foreign body noted. Upper abdomen: No abnormality noted. IMPRESSION: Mild airway thickening may reflect acute and/or chronic bronchitis. No pneumonia. ACT 112: Negative or not required by law. Electronically signed by Ladan Linder 04-30-2024 10:45 AM Discharge Instructions Given to Patient (Per Discharging Provider) PLEASE REFER TO YOUR NEW MEDICATION LIST AND FOLLOW INSTRUCTIONS CAREFULLY. YOUR NEW MEDICATIONS INCLUDE: AZITHROMYCIN- antibiotic TAMIFLU- antiviral medication for Influenza A DUONEB- nebulized therapy MUCINEX- for cough/congestion PREDNISONE TAPER- steroid, to be taken as follows: 40mg daily x 2 days, 30mg daily x 2 days, 20mg daily x 2 days, 10mg daily x 2 days, then stop PLEASE CALL YOUR PRIMARY CARE PHYSICIAN OR RETURN TO THE ER IF WITH WORSENING OF SYMPTOMS, INCLUDING shortness of breath, cough, fever/chills, chest pain, etc FOLLOW UP WITH PRIMARY CARE PHYSICIAN OUTLINED ABOVE. Total Time Total Time Spent Total Time Spent (In Minutes): 50 minutes
[2024-05-03 15:14] VITALS: BP 157/79; PULSE 73
--- NOTE | 2024-05-03 16:59 | Electrocardiogram Report ---
Test Reason : Blood Pressure : */* mmHG Vent. Rate : 65 BPM Atrial Rate : 65 BPM P-R Int : 124 ms QRS Dur : 90 ms QT Int : 412 ms P-R-T Axes : 73 75 31 degrees QTcB Int : 428 ms Sinus rhythm with Premature atrial complexes Otherwise normal ECG When compared with ECG of 30-Apr-2024 10:16, No significant change was found Confirmed by Alex Holland [id number] on 05/03/2024 4:59:03 PM Referred By: REFERRED SELF Confirmed By: Alex Holland
== END 2024-05-03 15:56 | disposition home or self-care (01) | DRG 193 ==
LOC: ED 09:57 → SUATTDRO 13:21 → EDINP 13:21 → 2N 20:01